=== PATIENT | female | born 1945 | race Caucasian/White ===

== ENCOUNTER 2016-08-31 09:50 | Emergency (ER) | payer OTHER, MEDICAID ==
[~2016-08-31] VITALS: Ht 160 cm; Wt 72.6 kg
[2016-08-31 09:50] VITALS: BP_SYST 146
[~2016-08-31 09:50] MED LIST: CLON0.2T PO; ESCI20TA PO; HYDR-4039 PO; LEVO100T PO; LOSA1TAB15 PO; ROSU10TA PO
[2016-08-31] MEDS ORDERED: cefTRIAXone 1 GM in LIDOCAINE 1%, 20 ML MDV 2.1 ML IM ONE (10:45)
[2016-08-31] MEDS ORDERED: ALBUTEROL SULFATE 0.083% 2.5 MG/3 ML VIAL.NEB INH ONE (10:45)
[2016-08-31 11:48] VITALS: BP_SYST 121
== END 2016-08-31 11:47 | disposition home or self-care (01) ==
LOC: SED 09:50
DX: J20.9 Acute bronchitis, unspecified (principal); E11.9 Type 2 diabetes mellitus without complications; I10 Essential (primary) hypertension; E03.9 Hypothyroidism, unspecified; Z88.8 Allergy status to other drugs, medicaments and biological substances
CPT/HCPCS: 71020; 94640; 96372; 99284; J0696; J2001

== ENCOUNTER 2016-09-28 09:37 | Emergency (ER) | payer OTHER, MEDICAID ==
[~2016-09-28] VITALS: Ht 160 cm; Wt 72.6 kg
[2016-09-28 09:37] VITALS: BP_SYST 113
[2016-09-28] MEDS ORDERED: KETOROLAC TROMETHAMINE 30 MG VIAL IVP ONE (10:30)
[2016-09-28 10:57] LABS: BILIRUBIN,URINE NEGATIVE (NEGATIVE); BLOOD, URINE NEGATIVE (NEGATIVE); CLARITY/URINE CLEAR (CLEAR); COLOR,URINE YELLOW (YELLOW); GLUCOSE,URINE NEGATIVE (NEGATIVE); KETONES,URINE NEGATIVE (NEGATIVE); LEUKOCYTE ESTERASE ,URINE 2+ (NEGATIVE); NITRITE, URINE NEGATIVE (NEGATIVE); PH,URINE 6.5 (5.0-8.0); PROTEIN URINE 2+ (NEGATIVE); UROBILINOGEN,URINE 0.2 (0.2-1.0)
[2016-09-28 11:30] LABS: RBC,URINE 0-3 /HPF (0-3)
[2016-09-28] MEDS ORDERED: ACETAMINOPHEN 500 MG TABLET PO ONE (11:30)
[2016-09-28] MEDS ORDERED: MAGNESIUM CITRATE 300 ML ORAL SOLUTION PO ONE (11:30)
[2016-09-28] MEDS ORDERED: cefTRIAXone 1 GM in D5W 50 ML IV ONE (11:30)
[2016-09-28 11:31] LABS: BACTERIA,URINE FEW /HPF (None Seen); MUCUS,URINE None Seen /LPF (None Seen)
[2016-09-28 12:40] VITALS: BP_SYST 147
== END 2016-09-28 12:40 | disposition home or self-care (01) ==
LOC: SED 09:37
DX: N39.0 Urinary tract infection, site not specified (principal); M54.9 Dorsalgia, unspecified; K59.00 Constipation, unspecified; E11.9 Type 2 diabetes mellitus without complications; I10 Essential (primary) hypertension; E03.9 Hypothyroidism, unspecified; Z88.6 Allergy status to analgesic agent
CPT/HCPCS: 74000; 81000; 87086; 96365; 96375; 99285; J0696; J1885; J7060

== ENCOUNTER 2016-10-24 18:00 | Emergency (ER) | payer OTHER, MEDICAID ==
[~2016-10-24] VITALS: Ht 160 cm; Wt 74.4 kg
[2016-10-24 18:15] VITALS: BP_SYST 149
[2016-10-24] MEDS ORDERED: DIPHENHYDRAMINE INJ 50 MG/ML VIAL IM ONE (19:00)
[2016-10-24] MEDS ORDERED: MORPHINE SULFATE 10 MG/ML VIAL IM ONE (19:00)
[2016-10-24] MEDS ORDERED: DEXAMETHASONE SOD PHOSPHATE 10 MG/ML VIAL IM ONE (19:00)
[2016-10-24 20:02] VITALS: BP_SYST 149
== END 2016-10-24 20:02 | disposition home or self-care (01) ==
LOC: SED 18:00
DX: M54.17 Radiculopathy, lumbosacral region (principal); E11.9 Type 2 diabetes mellitus without complications; I10 Essential (primary) hypertension; Z88.6 Allergy status to analgesic agent; E03.9 Hypothyroidism, unspecified
CPT/HCPCS: 96372; 99284; J1100; J1200; J2270; J7030

== ENCOUNTER 2017-01-30 19:55 | Emergency (ER) | payer OTHER, MEDICAID ==
[~2017-01-30] VITALS: Ht 154.9 cm; Wt 77.1 kg
[~2017-01-30 19:55] MED LIST changes: -CLON0.2T PO; +CYM30 PO; -HYDR-4039 PO; -LEVO100T PO; +LEVO112T5 PO; +LIP10 PO; -LOSA1TAB15 PO; +MELO15TA13 PO; +METF1000 PO; +NEBI20TA2 PO; +PYRI50TA9 PO; -ROSU10TA PO; +TRAM50TA92 PO; +TRIA1CAP53 PO
[2017-01-30 20:10] VITALS: BP_SYST 161
[2017-01-30] MEDS ORDERED: BUPIVACAINE /PF 0.25% 30 ML VIAL INJ ONE (20:45)
[2017-01-30] MEDS ORDERED: DEXAMETHASONE SOD PHOSPHATE 4 MG/ML VIAL IM ONE (20:45)
[2017-01-30 21:44] VITALS: BP_SYST 140
== END 2017-01-30 21:44 | disposition home or self-care (01) ==
LOC: SED 19:55
DX: M54.30 Sciatica, unspecified side (principal); M54.10 Radiculopathy, site unspecified; E11.9 Type 2 diabetes mellitus without complications; I10 Essential (primary) hypertension; E03.9 Hypothyroidism, unspecified; Z88.6 Allergy status to analgesic agent
CPT/HCPCS: 96372; 99283; J1100; J3490

== ENCOUNTER 2017-07-27 23:08 | Emergency (ER) | payer OTHER, MEDICAID ==
[~2017-07-27] VITALS: Ht 157.5 cm; Wt 79.8 kg
[2017-07-27 23:20] VITALS: BP_SYST 111
--- NOTE | 2017-07-28 00:01 | NUR ---
Patient to ER bed 6 to gown for evaluation. Side rails up. Report given to EDILSON Rosado.
--- NOTE | 2017-07-28 00:10 | NUR ---
Pt in Bed 6 with c/o swelling to LE. Dr Dos Santos made aware.
[2017-07-28 00:28] LABS: BILIRUBIN,URINE NEGATIVE (NEGATIVE); BLOOD, URINE NEGATIVE (NEGATIVE); CLARITY/URINE CLEAR (CLEAR); COLOR,URINE YELLOW (YELLOW); GLUCOSE,URINE NEGATIVE (NEGATIVE); KETONES,URINE NEGATIVE (NEGATIVE); LEUKOCYTE ESTERASE ,URINE 2+ (NEGATIVE); NITRITE, URINE NEGATIVE (NEGATIVE); PROTEIN URINE TRACE (NEGATIVE); UROBILINOGEN,URINE 0.2 (0.2-1.0)
[2017-07-28 00:36] LABS: BACTERIA,URINE FEW /HPF (None Seen); RBC,URINE 0-3 /HPF (0-3); WBC,URINE 50-80 /HPF (0-3)
--- NOTE | 2017-07-28 00:40 | NUR ---
ER at bedside examining patient.
[2017-07-28] MEDS ORDERED: LOSA50TA20 PO (01:08)
[2017-07-28 01:15] LABS: BASOPHILS # (AUTO) 0.1 K/uL (0.0-0.2); BASOPHILS % (AUTO) 0.9 % (0.0-2.0); EOSINOPHILS # (AUTO) 0.3 K/uL (0.0-0.4); HEMATOCRIT 39.4 % (36-48); HEMOGLOBIN 13.2 g/dL (12.0-16.0); LYMPHOCYTES # (AUTO) 1.9 K/uL (1.0-5.5); LYMPHOCYTES % (AUTO) 26.6 % (20.5-51.5); MEAN CORPUSCULAR HEMOGLOBIN 30 pg (27-31); MEAN CORPUSCULAR HGB CONC 33 % (32-36); MEAN CORPUSCULAR VOLUME 90 fL (79.0-98.0); MONOCYTES # (AUTO) 0.6 K/uL (0.0-1.0); MONOCYTES % (AUTO) 7.8 % (1.7-9.3); NEUTROPHILS # (AUTO) 4.2 K/uL (1.8-7.7); NEUTROPHILS % (AUTO) 60.7 % (40.0-70.0); PLATELET COUNT (AUTO) 324 K/uL (130-430); RED BLOOD CELL COUNT(AUTO) 4.36 MIL/uL (4.2-6.2); RED CELL DISTRIBUTION WIDTH 12.2 % (9.0-15.0); WHITE BLOOD COUNT (AUTO) 7.1 K/uL (4.8-10.8)
[2017-07-28 01:22] LABS: CALCIUM 9.1 mg/dL (8.4-11.0); CREATININE 0.65 mg/dL (0.55-1.30); POTASSIUM 3.4 mmol/L (3.5-5.1)
[2017-07-28 01:24] LABS: PROTHROMBIN TIME 9.7 SECS (9.5-12.5)
[2017-07-28 01:27] LABS: ALBUMIN 3.8 g/dL (3.4-4.8); TOTAL BILIRUBIN 0.2 mg/dL (0.0-1.0)
[2017-07-28] MEDS ORDERED: CLON0.3T PO (01:30)
[2017-07-28] MEDS ORDERED: PREG100C PO (01:30)
--- NOTE | 2017-07-28 02:00 | NUR ---
Patient resting quietly. No acute distress noted. Vital signs within normal range.
[2017-07-28] MEDS ORDERED: IOHEXOL 350 mgI/mL, 150 ML INFUS..BTL IV ONE ×2 (03:28→17:05)
[2017-07-28] MEDS ORDERED: NITROFURANTOIN MONOHYD/M-CRYST 100 MG CAPSULE PO ONE (03:30)
--- NOTE | 2017-07-28 03:35 | NUR ---
OOB to Bathroom with assistance.
--- NOTE | 2017-07-28 04:08 | NUR ---
Patient transported to radiology via GURNEY, accompanied by ANIME DESIGNER.
--- NOTE | 2017-07-28 04:30 | NUR ---
Returned from radiology, back to [facility].
[2017-07-28] MEDS ORDERED: HYDROcodone/ACETAMIN 5-325 MG TAB (NORCO/ VICODIN) PO ONE (04:45)
--- NOTE | 2017-07-28 05:00 | NUR ---
c/o hip pain , Dr Dos Santos made aware.
--- NOTE | 2017-07-28 05:15 | NUR ---
Medication given as per orders, tolerated well.
[2017-07-28] MEDS ORDERED: hydrALAZINE HCL 20 MG/ML VIAL IVP ONE (05:30)
[2017-07-28 06:03] VITALS: BP_SYST 170
== END 2017-07-28 06:03 | disposition home or self-care (01) ==
LOC: SED 23:08
DX: N39.0 Urinary tract infection, site not specified (principal); R60.9 Edema, unspecified; M79.662 Pain in left lower leg; E11.9 Type 2 diabetes mellitus without complications; I10 Essential (primary) hypertension; E03.9 Hypothyroidism, unspecified; Z90.710 Acquired absence of both cervix and uterus; Z88.6 Allergy status to analgesic agent; Z79.899 Other long term (current) drug therapy; Z96.659 Presence of unspecified artificial knee joint
CPT/HCPCS: 36415; 71045; 71275; 80053; 81000; 83880; 84484; 85025; 85379; 85610; 85730; 87086; 93005; 96374; 99285; J0360; Q9967

== ENCOUNTER 2018-09-10 23:56 | Emergency (ER) | payer OTHER, MEDICAID ==
[~2018-09-10] VITALS: Ht 157.5 cm; Wt 76.2 kg
[~2018-09-10 23:56] MED LIST changes: +CLON0.3T PO; -CYM30 PO; -ESCI20TA PO; -LIP10 PO; +LOSA50TA28 PO; -MELO15TA13 PO; +PREG100C PO; -TRAM50TA92 PO
[2018-09-11 00:20] VITALS: BP_SYST 198
--- NOTE | 2018-09-11 00:20 | NUR ---
0020 - Assumed care of pt. Pt ambulated to ED bed 5 from [facility]. Per pt, pt has had TORO off and on x [address] scan 2 days ago that was normal. currently rates pain 8-10/10.
--- NOTE | 2018-09-11 00:30 | NUR ---
0030 - ER at bedside examining patient.
[2018-09-11] MEDS ORDERED: NACL 0.9% 1,000 ML IV ONE (00:40)
[2018-09-11] MEDS ORDERED: METOCLOPRAMIDE HCL 10 MG/2 ML VIAL IVP ONE (00:45)
[2018-09-11] MEDS ORDERED: DIPHENHYDRAMINE INJ 50 MG/ML VIAL IVP ONE (00:45)
--- NOTE | 2018-09-11 01:00 | NUR ---
# 22 gauge angiocath placed to RT AC. Use of asceptic technique. Opsite placed over site. Blood return noted. Blood for lab drawn from site. Flushed with 10 cc of normal saline. No evidence of infiltration noted. Patient tolerated well.
[2018-09-11] MEDS ORDERED: BENZTROPINE MESYLATE 2 MG/ 2 ML AMP IVP ONE (01:45)
[2018-09-11 03:28] VITALS: BP_SYST 148
--- NOTE | 2018-09-11 03:28 | NUR ---
0328 - Patient given written and verbal discharge instructions and verbalizes understanding. ER MD discussed with patient the results and treatment provided. Patient in stable condition. ID arm band removed. IV catheter removed intact and dressing applied, no active bleeding. Patient educated on pain management and to follow up with PMD. Opportunity for questions provided and answered. Medication side effect fact sheet provided.
== END 2018-09-11 03:28 | disposition home or self-care (01) ==
LOC: SED 23:56
DX: R51 Headache (principal); I10 Essential (primary) hypertension; E11.9 Type 2 diabetes mellitus without complications; E03.9 Hypothyroidism, unspecified; Z90.710 Acquired absence of both cervix and uterus; Z88.6 Allergy status to analgesic agent; Z79.899 Other long term (current) drug therapy
CPT/HCPCS: 96374; 96375; 99283; J1200; J2765; J7030; J0515

== ENCOUNTER 2018-09-13 09:14 | Inpatient (IN) | payer OTHER, MEDICAID ==
[~2018-09-13] VITALS: Ht 157.5 cm; Wt 83.5 kg
[2018-09-13 09:15] VITALS: BP_SYST 187
--- NOTE | 2018-09-13 09:15 | NUR ---
BROUGHT BACK TO BED #4, TRIAGED AND REPORT GIVEN TO MICHEAL
--- NOTE | 2018-09-13 09:24 | NUR ---
Patient presented to ER with c/o headache and dizziness. Patient A&Ox4, afebrile, skin pink, pain 11/26, patient yakut speaking. Patient arrived with daughter, ambulatory. Patient states she has had head ache [id number], but this morning patient had high bp, headache and dizziness prompting ER visit this morning. Patient states she had a head CT saturday at [facility], and an appointment with neurologist in 3 weeks.
--- NOTE | 2018-09-13 09:26 | NUR ---
ER Dr. Keene at bedside examining patient.
[2018-09-13] MEDS ORDERED: DILTIAZEM HCL 25 MG/5 ML VIAL IVP ONE (10:30)
[2018-09-13 10:37] LABS: BASOPHILS % (AUTO) 0.3 % (0.0-2.0); EOSINOPHILS # (AUTO) 0.1 K/uL (0.0-0.4); EOSINOPHILS % (AUTO) 2.1 % (0.0-4.0); HEMOGLOBIN 11.9 g/dL (12.0-16.0); LYMPHOCYTES # (AUTO) 1.2 K/uL (1.0-5.5); LYMPHOCYTES % (AUTO) 19.2 % (20.5-51.5); MEAN CORPUSCULAR HEMOGLOBIN 30 pg (27-31); MEAN CORPUSCULAR HGB CONC 33 % (32-36); MEAN CORPUSCULAR VOLUME 89 fL (79.0-98.0); MONOCYTES # (AUTO) 0.4 K/uL (0.0-1.0); NEUTROPHILS # (AUTO) 4.3 K/uL (1.8-7.7); NEUTROPHILS % (AUTO) 71.4 % (40.0-70.0); PLATELET COUNT (AUTO) 279 K/uL (130-430); RED BLOOD CELL COUNT(AUTO) 4.03 MIL/uL (4.2-6.2); RED CELL DISTRIBUTION WIDTH 13.6 % (9.0-15.0)
[2018-09-13 10:59] LABS: INR 0.9 (0.8-1.2); PROTHROMBIN TIME 9.2 SECS (9.5-12.5)
[2018-09-13 11:00] LABS: ANION GAP 7 (5-15); CREATININE 0.69 mg/dL (0.55-1.30); GLUCOSE 116 mg/dL (70-99); POTASSIUM 4.1 mmol/L (3.5-5.1); SODIUM SERUM 121 mmol/L (136-145); UREA NITROGEN, BLOOD 16 mg/dL (8-21)
[2018-09-13 11:25] LABS: ALANINE AMINOTRANSFERASE 26 U/L (12-78); ALBUMIN 3.5 g/dL (3.4-4.8); ASPARTATE AMINOTRANSFERASE 18 U/L (10-37); FREE T4 (FREE THYROXINE) 0.7 ng/dL (0.6-1.6); TOTAL BILIRUBIN 0.5 mg/dL (0.0-1.0)
[2018-09-13 11:30] LABS: ALCOHOL, BLOOD < 3 mg/dL (<10); CHLORIDE 85 mmol/L (98-107)
[2018-09-13 11:43] LABS: BILIRUBIN,URINE NEGATIVE (NEGATIVE); BLOOD, URINE NEGATIVE (NEGATIVE); CLARITY/URINE CLEAR (CLEAR); COLOR,URINE YELLOW (YELLOW); GLUCOSE,URINE NEGATIVE (NEGATIVE); KETONES,URINE NEGATIVE (NEGATIVE); LEUKOCYTE ESTERASE ,URINE 1+ (NEGATIVE); NITRITE, URINE NEGATIVE (NEGATIVE); PROTEIN URINE NEGATIVE (NEGATIVE); UROBILINOGEN,URINE 0.2 (0.2-1.0)
[2018-09-13] MEDS ORDERED: cloNIDine HCL 0.1 MG TABLET PO ONE (11:45)
[2018-09-13] MEDS ORDERED: NS 500 ML IV ONE (11:45)
[2018-09-13] MEDS ORDERED: MORPHINE 4 MG/ML INJ. SYRINGE IVP ONE (11:45)
[2018-09-13] MEDS ORDERED: DIPHENHYDRAMINE INJ 50 MG/ML VIAL IVP ONE (11:45)
--- NOTE | 2018-09-13 11:45 | NUR ---
TO orders from Dr. Asencio
[2018-09-13 12:00] LABS: RBC,URINE 0-3 /HPF (0-3); WBC,URINE 0-3 /HPF (0-3)
[2018-09-13 12:01] LABS: BACTERIA,URINE FEW /HPF (None Seen); MUCUS,URINE None Seen /LPF (None Seen)
[2018-09-13 12:01] LABS: BARBITURATE, URINE NEGATIVE (NEG <=200); BENZODIAZEPINE, URINE NEGATIVE (NEG <=150); CANNABINOID, URINE NEGATIVE (NEG <=50); COCAINE, URINE NEGATIVE (NEG <=150); METHAMPHETAMINES SCREEN,URINE NEGATIVE (NEG <=500); OPIATE, URINE NEGATIVE (NEG <=100); PHENCYCLIDINE SCREEN,URINE NEGATIVE (NEG <=25); UR TRICYCLIC ANTIDEPRESSANTS NEGATIVE (NEG <=300); URINE AMPHETAMINE NEGATIVE (NEG <=500); URINE METHADONE NEGATIVE (NEG <=200); URINE OXYCODONE SCREEN NEGATIVE (NEG <=100); URINE PROPOXYPHENE SCREEN NEGATIVE (NEG <=300)
[2018-09-13] MEDS ORDERED: OLME40TA12 PO (12:12)
--- NOTE | 2018-09-13 12:12 | NUR ---
Medication reconciliation completed with information provided by [employer] BROUGHT IN BY PATIENT AND PTS FAMILY. Any prior medication reconciliation on file was reviewed and corrected.
--- NOTE | 2018-09-13 12:50 | NUR ---
ADMISSION NOTE Received patient from ER via gurney. Patient admitted with diagnosis of HYPERTENSION. Patient is awake, alert, oriented X 3. Patient oriented to hospital room, call light, toileting, pain management and safety-teach back done. Patient informed that SAHIL will be HER nurse and that their room number is 101A. Personal belongings checked and Belongings List documented. Call light within reach.
[2018-09-13 12:58] VITALS: BP_SYST 185
[2018-09-13] MEDS ORDERED: D5W 1,000 ML IV PRN (12:59)
[2018-09-13] MEDS ORDERED: INSULIN REGULAR, HUMAN 100 UNITS/ML, 10 ML VIAL (novoLIN R) SUBCUT PRN (13:00)
[2018-09-13] MEDS ORDERED: LORazepam 2 MG/ML VIAL IVP PRN (13:00)
[2018-09-13] MEDS ORDERED: HYDROcodone/ACETAMIN 10-325 MG TAB PO PRN (13:00)
[2018-09-13] MEDS ORDERED: GLUCOSE 15 GM GEL (in 37.5 GM TUBE) PO PRN (13:00)
[2018-09-13] MEDS ORDERED: DEXTROSE 50% JECT 50 ML DISP.SYRIN IVP PRN (13:00)
[2018-09-13] MEDS ORDERED: HYDROcodone/ACETAMIN 5-325 MG TAB (NORCO/ VICODIN) PO PRN (13:00)
[2018-09-13] MEDS ORDERED: MORPHINE 4 MG/ML INJ. SYRINGE IVP PRN (13:00)
[2018-09-13] MEDS ORDERED: ONDANSETRON HCL 4 MG/2 ML VIAL IVP PRN (13:00)
--- NOTE | 2018-09-13 13:00 | NUR ---
Patient will be admitted to care of [facility]. Admitted to Tele unit. Will go to room . Belongings list completed. Summary report printed. Report will be given at bedside to Kayla WAGGONER.
--- NOTE | 2018-09-13 13:37 | NUR ---
CONSULTATION PAGED/CALLED Reason for Consultation: [] UNCONTROLEED HTN Person Who was Notified: [] LILIA Consulting Physician: [] DR Laith ESPINAL Landcare Facilitator Specialty: [] [employer] MATH TEACHER Ordering Physician: [] DR Marquis ESPINAL
--- NOTE | 2018-09-13 13:39 | NUR ---
CONSULTATION PAGED/CALLED Reason for Consultation: [] HEADACHE Person Who was Notified: [] SIMI Consulting Physician: [] DR ELEANOR CARR/DR GHANSHYAM RODRIGES REPORTING DEVELOPER Return Agent Specialty: [] NEUROLOGIST Ordering Physician: [] DR Marquis ESPINAL
[2018-09-13] MEDS: NACL 0.9% 1,000 ML IV SCH ×2 (13:51→23:18)
[2018-09-13 13:52] VITALS: BP_SYST 121
--- NOTE | 2018-09-13 14:00 | NUR ---
CARDIO/NEURO Patient occipital headache is better using eye glass, no dizziness no blurring of vision , blood pressure is controlled able to get out of to bed side commode with minimum assistance, discussed safety/fall precaution , bedside commode provided, needs attended.
[2018-09-13] MEDS ORDERED: AMITRIPTYLINE HCL 25 MG TABLET (ELAVIL) PO ONE (15:30)
[2018-09-13 17:10] VITALS: BP_SYST 121
[2018-09-13] MEDS: metFORMIN HCL 500 MG TABLET PO SCH (17:18)
--- NOTE | 2018-09-13 18:45 | NUR ---
Patient resting denies any headache , fall safety precaution initiated.
[2018-09-13 20:00] VITALS: BP_SYST 140
[2018-09-13] MEDS ORDERED: cloNIDine HCL 0.1 MG TABLET PO SCH (21:00)
[2018-09-13] MEDS: AMITRIPTYLINE HCL 25 MG TABLET (ELAVIL) PO SCH (21:31)
[2018-09-13] MEDS: ATORVASTATIN 20 MG TABLET PO SCH (21:31)
[2018-09-13] MEDS: cloNIDine HCL 0.1 MG TABLET PO SCH (21:33)
[2018-09-13] MEDS: PREGABALIN 25 MG CAPSULE (LYRICA) PO SCH (21:34)
[2018-09-13 22:40] VITALS: BP_SYST 148
--- NOTE | 2018-09-13 22:42 | NUR ---
NOTES - REASSESS HEADACHE / B/P Reassessed headache pain level and patient reports tablet, Vicodin, did not help and presently reports pain is 8/10. Will administer medication for severe pain as ordered. Blood pressure decreased and is presently 148/71, HR 54. Will monitor.
[2018-09-14 00:12] VITALS: BP_SYST 128
--- NOTE | 2018-09-14 00:35 | NUR ---
Notes Patient is in no sign of distress and reports headache is gone it is 0/10. VSS, with B/P 128/59, HR 53. Safety precautions in place. Will monitor.
--- NOTE | 2018-09-14 02:24 | NUR ---
NOTES Patient resting w/eyes closed. Symmetrical rise and fall of chest, none labored breathing.
--- NOTE | 2018-09-14 04:14 | NUR ---
NOTES Patient's vital signs are stable; BP 142/74. She used the bedside commode and had a steady gait; she did not experience dizziness or lightheadedness. She denies a headache or pain at this time.
[2018-09-14 06:10] VITALS: BP_SYST 142
[2018-09-14 06:14] LABS: BASOPHILS % (AUTO) 0.3 % (0.0-2.0); EOSINOPHILS # (AUTO) 0.2 K/uL (0.0-0.4); HEMATOCRIT 33.2 % (36-48); HEMOGLOBIN 10.9 g/dL (12.0-16.0); LYMPHOCYTES # (AUTO) 2.1 K/uL (1.0-5.5); LYMPHOCYTES % (AUTO) 33.8 % (20.5-51.5); MEAN CORPUSCULAR HEMOGLOBIN 30 pg (27-31); MEAN CORPUSCULAR HGB CONC 33 % (32-36); MEAN CORPUSCULAR VOLUME 90 fL (79.0-98.0); MONOCYTES # (AUTO) 0.5 K/uL (0.0-1.0); MONOCYTES % (AUTO) 7.8 % (1.7-9.3); NEUTROPHILS # (AUTO) 3.3 K/uL (1.8-7.7); NEUTROPHILS % (AUTO) 54.1 % (40.0-70.0); PLATELET COUNT (AUTO) 257 K/uL (130-430); RED BLOOD CELL COUNT(AUTO) 3.68 MIL/uL (4.2-6.2); RED CELL DISTRIBUTION WIDTH 13.3 % (9.0-15.0); WHITE BLOOD COUNT (AUTO) 6.2 K/uL (4.8-10.8)
[2018-09-14 06:24] LABS: ANION GAP 5 (5-15); CALCIUM 8.6 mg/dL (8.4-11.0); CHLORIDE 92 mmol/L (98-107); CREATININE 0.68 mg/dL (0.55-1.30); GLUCOSE 97 mg/dL (70-99); PHOSPHORUS 3.9 mg/dL (2.7-4.5); POTASSIUM 3.6 mmol/L (3.5-5.1); SODIUM SERUM 124 mmol/L (136-145); UREA NITROGEN, BLOOD 15 mg/dL (8-21)
[2018-09-14] MEDS: LEVOTHYROXINE SODIUM 0.112 MG TABLET PO SCH (06:55)
--- NOTE | 2018-09-14 07:00 | NUR ---
CLOSING NOTE Patient requested pain medication for a headache, which she rates 7/10 and she was given norco 10-325 as ordered for pain. Fingerstick BS was done with a result of 97 mg/DL. Needs met throughout shift, will endorse care to day shift nurse.
[2018-09-14 07:51] VITALS: BP_SYST 150
[2018-09-14] MEDS: PREGABALIN 25 MG CAPSULE (LYRICA) PO SCH ×2 (08:25→20:16)
[2018-09-14] MEDS: metFORMIN HCL 500 MG TABLET PO SCH ×2 (08:25→17:10)
[2018-09-14] MEDS: cloNIDine HCL 0.1 MG TABLET PO SCH ×2 (08:26→20:16)
[2018-09-14] MEDS: LOSARTAN POTASSIUM 50 MG TABLET (COZAAR) PO SCH (08:26)
[2018-09-14] MEDS: TRIAMTERENE/HYDROCHLOROTHIAZID 1 CAP CAPSULE (DYAZIDE37.5/25) PO SCH (08:27)
[2018-09-14] MEDS ORDERED: amLODIPine BESYLATE 5 MG TABLET PO SCH (09:00)
[2018-09-14 10:41] VITALS: BP_SYST 150
[2018-09-14] MEDS: NACL 0.9% 1,000 ML IV SCH (10:58)
--- NOTE | 2018-09-14 13:02 | NUR ---
NEURO Patient alert/oriented denies any dizziness no blurring of vision with ,mild occipital headache tolerable as verbalized ,encouraged to use eyeglass, refused for pain medication, safety /fall precaution initiated will monitor.
--- NOTE | 2018-09-14 14:04 | NUR ---
PATIENT RESTING: Patient resting quietly. No acute distress noted. Vital signs within normal range.
--- NOTE | 2018-09-14 15:45 | NUR ---
RECEIVED PATIENT Report received from EDILSON Baker. Patient made aware, will continue with the plan of care.
[2018-09-14 16:30] VITALS: BP_SYST 140
[2018-09-14] MEDS: ACETAMINOPHEN 325 MG TABLET PO PRN (17:11)
--- NOTE | 2018-09-14 17:11 | NUR ---
ROUNDS/PAIN Patient is awake, no respiratory distress noted, reports 3/10 headache, PRN Tylenol PO given as ordered. IVF infusing as ordered. Safety precautions observed, call light within reach, will continue to monitor. Daughter at the bedside.
--- NOTE | 2018-09-14 18:21 | NUR ---
CLOSING NOTE Patient is awake, in stable condition, breathing even and unlabored. Denies any pain/discomfort at this time. IVF infusing as ordered. Blaze Kelly seen and examined the patient at the bedside. Safety precautions observed, bed low and locked, side rails up x2, call light within reach. All needs met and anticipated, will endorse plan of care.
[2018-09-14 20:00] VITALS: BP_SYST 171
--- NOTE | 2018-09-14 20:11 | NUR ---
OPENING NOTE Received patient awake, AOx4, she is in no sign of distress, non labored breathing on room air with saturation at 97%. Call light is w/in reach. She refused bed alarm stating she gets up for use of the bedside commode and has not been calling for help. She denies dizziness. Updated board and reviewed plan of care.
[2018-09-14] MEDS: AMITRIPTYLINE HCL 25 MG TABLET (ELAVIL) PO SCH (20:16)
[2018-09-14] MEDS: ATORVASTATIN 20 MG TABLET PO SCH (20:16)
--- NOTE | 2018-09-14 20:21 | NUR ---
ELEVATED BLOOD PRESSURE Blood pressure was 171/72, HR 68. Administered catapress for blood pressure, which was scheduled/due. Will monitor.
[2018-09-15] VITALS (7 sets, daily range): BP systolic 148–178
[2018-09-15] MEDS: NACL 0.9% 1,000 ML IV SCH ×4 (00:43→23:53)
--- NOTE | 2018-09-15 00:48 | NUR ---
NOTES Patient's IV alarm was ringing, IVF bag is emtpy and hung new bag of IVF. Patient denies headache. Will monitor.
[2018-09-15] MEDS: ACETAMINOPHEN 325 MG TABLET PO PRN ×2 (02:37→08:29)
--- NOTE | 2018-09-15 02:41 | NUR ---
NOTES C/O headache Patient called to report a headache and requested Tylenol, she said she does not want Tyler tablets as she does not like the effect they have on her. Presently B/P is 156/73 and prn blood pressure medication is not indicated. Tylenol was given and will reassess.
--- NOTE | 2018-09-15 03:45 | NUR ---
NOTES Patient reports little relief from Tylenol and feels it is the blood pressure that is causing headache. B/P is 159/79 and prn medication is not indicated.
--- NOTE | 2018-09-15 04:05 | NUR ---
Elevated b/P Presently B/P 164/75, HR 69 and prn medication, catapress, was given. Will monitor.
[2018-09-15] MEDS: cloNIDine HCL 0.1 MG TABLET PO PRN ×2 (04:06→15:36)
[2018-09-15] MEDS: LEVOTHYROXINE SODIUM 0.112 MG TABLET PO SCH (06:05)
--- NOTE | 2018-09-15 06:13 | NUR ---
Notes Patient is feeling better, headache is gone and blood pressure has decreased to 1552/79, HR 67. Fingerstick BS is 98 mg/dL, no coverage due.
[2018-09-15 06:59] LABS: ANION GAP 9 (5-15); BASOPHILS % (AUTO) 0.2 % (0.0-2.0); CALCIUM 8.5 mg/dL (8.4-11.0); CHLORIDE 97 mmol/L (98-107); EOSINOPHILS # (AUTO) 0.3 K/uL (0.0-0.4); EOSINOPHILS % (AUTO) 4.7 % (0.0-4.0); GLUCOSE 100 mg/dL (70-99); HEMATOCRIT 33.2 % (36-48); HEMOGLOBIN 11.2 g/dL (12.0-16.0); LYMPHOCYTES # (AUTO) 1.7 K/uL (1.0-5.5); LYMPHOCYTES % (AUTO) 30.9 % (20.5-51.5); MEAN CORPUSCULAR HEMOGLOBIN 30 pg (27-31); MEAN CORPUSCULAR HGB CONC 34 % (32-36); MEAN CORPUSCULAR VOLUME 90 fL (79.0-98.0); MONOCYTES # (AUTO) 0.5 K/uL (0.0-1.0); MONOCYTES % (AUTO) 9.3 % (1.7-9.3); NEUTROPHILS % (AUTO) 54.9 % (40.0-70.0); PLATELET COUNT (AUTO) 256 K/uL (130-430); POTASSIUM 3.5 mmol/L (3.5-5.1); RED BLOOD CELL COUNT(AUTO) 3.68 MIL/uL (4.2-6.2); RED CELL DISTRIBUTION WIDTH 13.7 % (9.0-15.0); SODIUM SERUM 133 mmol/L (136-145); UREA NITROGEN, BLOOD 14 mg/dL (8-21); WHITE BLOOD COUNT (AUTO) 5.4 K/uL (4.8-10.8)
[2018-09-15 07:06] LABS: ALANINE AMINOTRANSFERASE 23 U/L (12-78); ASPARTATE AMINOTRANSFERASE 20 U/L (10-37); TOTAL BILIRUBIN 0.4 mg/dL (0.0-1.0)
--- NOTE | 2018-09-15 07:15 | NUR ---
CLOSING NOTE Gave report to EDILSON Monsalve. Patient stable in no sign of distress.
--- NOTE | 2018-09-15 07:40 | NUR ---
AM rounds Patient resting in bed at this time, NO SOB, lung sounds clear. Complained of headache, medication given as ordered, ice pack provided. No dizziness, no blurry vision. Edema noted on bilateral upper and lower extremities. Fall precautions in place, bed in lowest position, 2 side rails up, educated on the call light system, patient verbalized understanding, call light within reach.
[2018-09-15] MEDS: PREGABALIN 25 MG CAPSULE (LYRICA) PO SCH ×2 (08:24→20:29)
[2018-09-15] MEDS: metFORMIN HCL 500 MG TABLET PO SCH ×2 (08:24→17:32)
[2018-09-15] MEDS: TRIAMTERENE/HYDROCHLOROTHIAZID 1 CAP CAPSULE (DYAZIDE37.5/25) PO SCH (08:25)
[2018-09-15] MEDS: LOSARTAN POTASSIUM 50 MG TABLET (COZAAR) PO SCH (08:26)
[2018-09-15] MEDS: amLODIPine BESYLATE 5 MG TABLET PO SCH (08:29)
[2018-09-15] MEDS: cloNIDine HCL 0.1 MG TABLET PO SCH ×2 (08:30→20:30)
--- NOTE | 2018-09-15 11:30 | NUR ---
Rounds Patient resting in bed, No SOB. States headache is tolerable, no dizziness, no blurred vision. IV site patent and fluids infusing as ordered. Fall precautions in place, bed alarm on, bed in lowest position, call light within reach
--- NOTE | 2018-09-15 15:16 | NUR ---
Rounds Patient up in chair having snacks, Son at bedside. No SOB, no dizziness, no blurry vision. No complaints of pain at this time. Patient complained of constipation, prune juice provided.
--- NOTE | 2018-09-15 18:31 | NUR ---
Closing note Patient resting in bed at this time.No SOB, no dizziness, no blurry vision. No complaints of pain at this time. Patient had one bowel movement, no complaints of abdominal pain. IV fluids infusing as ordered, no adverse side effects noted. On fall precautions, reinforced, bed kept in lowest position, call light within reach, 2 side rails up, bed alarm on. All needs met at this time.
--- NOTE | 2018-09-15 19:37 | NUR ---
Opening notes Received report. Patient is resting comfortably in bed. No signs of distress noted. Breathing is even and unlabored. IV patent and intact, infusing fluids. No needs at this time. Call light with the patient. Safety precautions in place.
[2018-09-15] MEDS: AMITRIPTYLINE HCL 25 MG TABLET (ELAVIL) PO SCH (20:29)
[2018-09-15] MEDS: ATORVASTATIN 20 MG TABLET PO SCH (20:30)
--- NOTE | 2018-09-15 20:30 | NUR ---
Medications Scheduled medications given. Educated the action and side effects of medications. Patient verbalized understanding and tolerated well. No signs of allergic reaction noted. No other needs at this time. Patient watching TV. Call light with the patient. Safety precautions in place.
--- NOTE | 2018-09-15 22:30 | NUR ---
Sleeping Patient sleeping. no sign of distress noted. Breathing even and unlabored. Call light with the patient. Safety precautions in place.
[2018-09-16 00:25] VITALS: BP_SYST 129
--- NOTE | 2018-09-16 00:30 | NUR ---
IVF New bag of IVF hung. No signs of distress noted. Breathing is even and unlabored. Emptied patient's bedside commode. No other needs at this time. Call light with the patient. Safety precautions in place.
--- NOTE | 2018-09-16 02:31 | NUR ---
Sleeping Patient asleep and snoring. No signs of distress noted. Call light with the patient. Safety precautions in place.
--- NOTE | 2018-09-16 04:16 | NUR ---
Patient continues to sleep. No signs of distress. Call light with the patient. Safety precautions in place.
[2018-09-16] MEDS: LEVOTHYROXINE SODIUM 0.112 MG TABLET PO SCH (06:06)
[2018-09-16] MEDS: ACETAMINOPHEN 325 MG TABLET PO PRN ×2 (06:15→10:28)
--- NOTE | 2018-09-16 06:35 | NUR ---
Closing notes Patient complain of headache. PRN pain medication given. Educated the action and side effects of medication. Patient verbalized understanding. All needs met throughout the shift. Call light with the patient. Safety precautions in place. Will endorse care to day shift RN.
[2018-09-16 06:51] LABS: BASOPHILS % (AUTO) 0.2 % (0.0-2.0); EOSINOPHILS # (AUTO) 0.3 K/uL (0.0-0.4); EOSINOPHILS % (AUTO) 5.2 % (0.0-4.0); HEMATOCRIT 32.9 % (36-48); HEMOGLOBIN 10.9 g/dL (12.0-16.0); LYMPHOCYTES # (AUTO) 1.7 K/uL (1.0-5.5); LYMPHOCYTES % (AUTO) 30.3 % (20.5-51.5); MEAN CORPUSCULAR HEMOGLOBIN 30 pg (27-31); MEAN CORPUSCULAR HGB CONC 33 % (32-36); MEAN CORPUSCULAR VOLUME 90 fL (79.0-98.0); MONOCYTES # (AUTO) 0.4 K/uL (0.0-1.0); MONOCYTES % (AUTO) 7.2 % (1.7-9.3); NEUTROPHILS # (AUTO) 3.2 K/uL (1.8-7.7); NEUTROPHILS % (AUTO) 57.1 % (40.0-70.0); PLATELET COUNT (AUTO) 257 K/uL (130-430); RED BLOOD CELL COUNT(AUTO) 3.66 MIL/uL (4.2-6.2); RED CELL DISTRIBUTION WIDTH 13.4 % (9.0-15.0); WHITE BLOOD COUNT (AUTO) 5.5 K/uL (4.8-10.8)
[2018-09-16 07:08] LABS: ANION GAP 6 (5-15); CALCIUM 8.6 mg/dL (8.4-11.0); CHLORIDE 95 mmol/L (98-107); CREATININE 0.56 mg/dL (0.55-1.30); GLUCOSE 102 mg/dL (70-99); POTASSIUM 3.2 mmol/L (3.5-5.1); SODIUM SERUM 128 mmol/L (136-145); UREA NITROGEN, BLOOD 10 mg/dL (8-21)
--- NOTE | 2018-09-16 07:25 | NUR ---
Opening Note patient resting in bed, eyes closed, breathing unlabored and symmetrical, no signs of distress, safety precautions in place, will continue to monitor
[2018-09-16] MEDS: LOSARTAN POTASSIUM 50 MG TABLET (COZAAR) PO SCH (08:34)
[2018-09-16] MEDS: TRIAMTERENE/HYDROCHLOROTHIAZID 1 CAP CAPSULE (DYAZIDE37.5/25) PO SCH (08:34)
[2018-09-16] MEDS: PREGABALIN 25 MG CAPSULE (LYRICA) PO SCH (08:34)
[2018-09-16] MEDS: cloNIDine HCL 0.1 MG TABLET PO SCH (08:35)
[2018-09-16] MEDS: metFORMIN HCL 500 MG TABLET PO SCH (08:35)
[2018-09-16] MEDS: amLODIPine BESYLATE 5 MG TABLET PO SCH (08:35)
--- NOTE | 2018-09-16 08:40 | NUR ---
Medication educated patient regarding meds, verbalized understanding, tolerated well by mouth, breathing unlabored and symmetrical, IV site patent, educated patient on use of call light for assistance, verbalized understanding, call light and bedside table left within reach, will continue to monitor
[2018-09-16 08:41] VITALS: BP_SYST 152
--- NOTE | 2018-09-16 10:31 | NUR ---
Tylenol given at this time for headache, educated patient regarding med, verbalized understanding, tolerated well by mouth, educated patient on use of call light for assistance, verbalized understanding, call light and bedside table left within reach, will continue to monitor
[2018-09-16] MEDS: NACL 0.9% 1,000 ML IV SCH (11:17)
[2018-09-16 11:31] VITALS: BP_SYST 158
--- NOTE | 2018-09-16 12:13 | NUR ---
Attempting to Page Dr. Asencio patient's son Baljeet asking if patient is to be discharged today so he can arrange transportation for patient, awaiting MD to call back
--- NOTE | 2018-09-16 12:20 | NUR ---
Spoke with Dr. Asencio asked if patient can be discharged home today, MD stated he is on his way to hospital. Called liza Delong and informed him MD will make rounds soon, verbalized understanding and stated will be by to see patient
--- NOTE | 2018-09-16 12:48 | NUR ---
Dr. Marquis Asencio Rounds stated patient can be discharged if cleared by Dr. Laith Asencio, will await MD to call back
[2018-09-16] MEDS ORDERED: LIP20 PO (12:51)
[2018-09-16] MEDS ORDERED: NOR10 PO (12:51)
[2018-09-16] MEDS ORDERED: ELA25 PO (12:51)
[2018-09-16] MEDS ORDERED: LOSA50TA3 PO (12:51)
[2018-09-16 13:06] VITALS: BP_SYST 152
--- NOTE | 2018-09-16 13:45 | NUR ---
D/C Patient Patient given medication reconciliation form and D/C instructions. Exit Care provided. Patient verbalized understanding. MD discussed with patient the results and treatment provided. Ambulatory with steady gait for discharge to home. Patient in stable condition, ID band removed. IV catheter removed, intact and dressing applied, no active bleeding. Rx given. Patient educated on pain management. All belongings sent with patient and son
--- NOTE | 2018-09-18 15:11 | NUR ---
Discharge Follow Up Phone Call BORING MACHINE SET UP OPERATOR JIG phoned patient, . Patient speaks limited Russian, but was able to communicate on a basic level. Patient stated she was feeling okay. She filled her prescriptions and is taking her medication as directed. She has a follow up appointment scheduled with her PCP, Dr Lemus, on 09/19/18.
== END 2018-09-16 13:45 | disposition home or self-care (01) | DRG 641 ==
LOC: SED 09:14 → STU 12:21 → SMU 09-15 15:34
PROVIDERS: ADMIT Preventive Medicine Preventive Medicine/Occupational Environmental Medicine; ATTEND Preventive Medicine Preventive Medicine/Occupational Environmental Medicine
DX: E87.1 Hypo-osmolality and hyponatremia (principal); N39.0 Urinary tract infection, site not specified; I16.0 Hypertensive urgency; E78.5 Hyperlipidemia, unspecified; E11.65 Type 2 diabetes mellitus with hyperglycemia; D64.9 Anemia, unspecified; E03.9 Hypothyroidism, unspecified; E66.9 Obesity, unspecified; E87.6 Hypokalemia; I10 Essential (primary) hypertension; Z90.710 Acquired absence of both cervix and uterus; Z68.33 Body mass index [BMI] 33.0-33.9, adult; Z88.8 Allergy status to other drugs, medicaments and biological substances; Z79.899 Other long term (current) drug therapy
CPT/HCPCS: 36415; 70450-TC; 71045; 74018; 80048; 80053; 80307; 81000-TC; 82140-TC; 82962; 83605; 83735-TC; 83880; 84100-TC; 84439; 84484; 85025; 85610-TC; 87040-TC; 87086; 93005; 93306; 96374; 96375; 99285; G0378; G0482; J1200; J1815; J2270; J3490; J7030

== ENCOUNTER 2018-09-20 04:31 | Emergency (ER) | payer OTHER, MEDICAID ==
[~2018-09-20] VITALS: Ht 157.5 cm; Wt 81.6 kg
[~2018-09-20 04:31] MED LIST changes: -CLON0.3T PO; +ELA25 PO; +LIP20 PO; -LOSA50TA28 PO; +LOSA50TA3 PO; -NEBI20TA2 PO; +NOR10 PO; -PYRI50TA9 PO
--- NOTE | 2018-09-20 04:45 | NUR ---
Patient to ER bed 6 to gown for evaluation. Side rails up.
--- NOTE | 2018-09-20 04:48 | NUR ---
Pt C/O hypertension since this morning. Family reports systolic ranging from 160-170. Hx of HTN and was recently admitted for uncontrolled blood pressure. Pt denies any headache, blurred vison, ringing in the ears, or any other complaints at this time. Will continue to monitor.
[2018-09-20 04:50] VITALS: BP_SYST 180
--- NOTE | 2018-09-20 05:05 | NUR ---
KALI Polk at bedside examining patient.
[2018-09-20] MEDS ORDERED: ACETAMINOPHEN 500 MG TABLET PO ONE (05:15)
[2018-09-20] MEDS ORDERED: ONDANSETRON 4 MG ODT TAB PO ONE (05:15)
[2018-09-20] MEDS ORDERED: hydrALAZINE HCL 25 MG TABLET PO ONE (05:15)
[2018-09-20] MEDS ORDERED: hydrALAZINE HCL 25 MG TABLET ONE (05:31)
[2018-09-20 06:29] VITALS: BP_SYST 154
--- NOTE | 2018-09-20 06:29 | NUR ---
Patient given written and verbal discharge instructions and verbalizes understanding. ER MD discussed with patient the results and treatment provided. Patient in stable condition. ID arm band removed. Patient educated on pain management and to follow up with PMD. Pain Scale 0/10. Opportunity for questions provided and answered. Medication side effect fact sheet provided.
[2018-09-20] MEDS ORDERED: NEBI20TA2 PO (12:05)
[2018-09-20] MEDS ORDERED: CAT.1 PO (12:05)
[2018-09-20] MEDS ORDERED: OLME40TA12 PO (12:05)
== END 2018-09-20 06:29 | disposition home or self-care (01) ==
LOC: SED 04:31
DX: I10 Essential (primary) hypertension (principal); R51 Headache; R11.0 Nausea; E11.9 Type 2 diabetes mellitus without complications; E03.9 Hypothyroidism, unspecified; Z88.6 Allergy status to analgesic agent; Z79.899 Other long term (current) drug therapy
CPT/HCPCS: 99284; Q0162

== ENCOUNTER 2018-09-20 07:40 | Inpatient (IN) | payer OTHER, MEDICAID ==
[~2018-09-20] VITALS: Ht 157.5 cm; Wt 81.6 kg
[2018-09-20 07:40] VITALS: BP_SYST 158
[2018-09-20] MEDS ORDERED: ACETAMINOPHEN 325 MG TABLET PO ONE (08:30)
[2018-09-20] MEDS ORDERED: ACETAMINOPHEN 325 MG TABLET ONE (08:43)
[2018-09-20] MEDS ORDERED: ASPIRIN 81 MG TAB.CHEW PO ONE (09:30)
[2018-09-20] MEDS ORDERED: MORPHINE 4 MG/ML INJ. SYRINGE IVP ONE (09:30)
[2018-09-20 10:09] LABS: BASOPHILS % (AUTO) 0.3 % (0.0-2.0); EOSINOPHILS # (AUTO) 0.2 K/uL (0.0-0.4); EOSINOPHILS % (AUTO) 2.2 % (0.0-4.0); HEMATOCRIT 36.9 % (36-48); HEMOGLOBIN 12.5 g/dL (12.0-16.0); LYMPHOCYTES # (AUTO) 1.4 K/uL (1.0-5.5); MEAN CORPUSCULAR HEMOGLOBIN 30 pg (27-31); MEAN CORPUSCULAR HGB CONC 34 % (32-36); MEAN CORPUSCULAR VOLUME 88 fL (79.0-98.0); MONOCYTES # (AUTO) 0.6 K/uL (0.0-1.0); MONOCYTES % (AUTO) 7.4 % (1.7-9.3); NEUTROPHILS # (AUTO) 6.3 K/uL (1.8-7.7); NEUTROPHILS % (AUTO) 74.1 % (40.0-70.0); PLATELET COUNT (AUTO) 280 K/uL (130-430); RED BLOOD CELL COUNT(AUTO) 4.18 MIL/uL (4.2-6.2); RED CELL DISTRIBUTION WIDTH 13.3 % (9.0-15.0); WHITE BLOOD COUNT (AUTO) 8.5 K/uL (4.8-10.8)
[2018-09-20] MEDS: PROMETHAZINE INJ.Non-Formulary 25 MG/ML AMP IVP ONE (10:13)
[2018-09-20] MEDS: NACL 0.9% 1,000 ML IV ONE (10:13)
[2018-09-20 10:20] LABS: BILIRUBIN,URINE NEGATIVE (NEGATIVE); BLOOD, URINE NEGATIVE (NEGATIVE); CLARITY/URINE CLEAR (CLEAR); COLOR,URINE YELLOW (YELLOW); GLUCOSE,URINE NEGATIVE (NEGATIVE); KETONES,URINE NEGATIVE (NEGATIVE); LEUKOCYTE ESTERASE ,URINE TRACE (NEGATIVE); NITRITE, URINE NEGATIVE (NEGATIVE); PH,URINE 7.5 (5.0-8.0); PROTEIN URINE TRACE (NEGATIVE); UROBILINOGEN,URINE 0.2 (0.2-1.0)
[2018-09-20 10:23] LABS: CALCIUM 9.2 mg/dL (8.4-11.0); CREATININE 0.83 mg/dL (0.55-1.30); GLUCOSE 109 mg/dL (70-99); UREA NITROGEN, BLOOD 16 mg/dL (8-21)
[2018-09-20 10:27] LABS: ALANINE AMINOTRANSFERASE 37 U/L (12-78); ALBUMIN 3.7 g/dL (3.4-4.8); ASPARTATE AMINOTRANSFERASE 26 U/L (10-37); LIPASE 449 U/L (73-393); PROTHROMBIN TIME 9.8 SECS (9.5-12.5); TOTAL BILIRUBIN 0.5 mg/dL (0.0-1.0)
[2018-09-20 10:31] LABS: SODIUM SERUM 121 mmol/L (136-145)
[2018-09-20 10:32] LABS: ANION GAP 10 (5-15); CHLORIDE 82 mmol/L (98-107); POTASSIUM 3.6 mmol/L (3.5-5.1)
[2018-09-20 10:43] LABS: BACTERIA,URINE RARE /HPF (None Seen); RBC,URINE 0-3 /HPF (0-3)
[2018-09-20] MEDS ORDERED: cloNIDine HCL 0.1 MG TABLET PO ONE (10:45)
[2018-09-20 10:56] LABS: CKMB RELATIVE INDEX 1.6 (0.0-2.9); CREATINE KINASE MB 3.3 ng/mL (0-3.6)
[2018-09-20] MEDS ORDERED: NEBI20TA2 PO (12:05)
[2018-09-20] MEDS ORDERED: CAT.1 PO (12:05)
[2018-09-20] MEDS ORDERED: OLME40TA12 PO (12:05)
[2018-09-20 12:39] VITALS: BP_SYST 148
[2018-09-20] MEDS: D5/0.45 NS 1,000 ML IV SCH ×2 (13:15→23:18)
[2018-09-20] MEDS ORDERED: D5W 1,000 ML IV PRN (15:08)
[2018-09-20] MEDS ORDERED: MORPHINE 4 MG/ML INJ. SYRINGE IVP PRN ×2 (15:15)
[2018-09-20] MEDS ORDERED: INSULIN REGULAR, HUMAN 100 UNITS/ML, 10 ML VIAL (novoLIN R) SUBCUT PRN (15:15)
[2018-09-20] MEDS ORDERED: DEXTROSE 50% JECT 50 ML DISP.SYRIN IVP PRN (15:15)
[2018-09-20] MEDS ORDERED: GLUCOSE 15 GM GEL (in 37.5 GM TUBE) PO PRN (15:15)
[2018-09-20 16:02] VITALS: BP_SYST 138
[2018-09-20 20:55] VITALS: BP_SYST 168
[2018-09-20] MEDS ORDERED: ENALAPRILAT DIHYDRATE 1.25 MG/ML VIAL IVP SCH (21:45)
[2018-09-20] MEDS ORDERED: ENALAPRILAT DIHYDRATE 1.25 MG/ML VIAL ONE (23:09)
[2018-09-21] VITALS (7 sets, daily range): BP systolic 135–180
[2018-09-21] MEDS: ONDANSETRON HCL 4 MG/2 ML VIAL IVP PRN ×2 (03:06→11:34)
[2018-09-21 06:59] LABS: BASOPHILS % (AUTO) 0.1 % (0.0-2.0); EOSINOPHILS # (AUTO) 0.1 K/uL (0.0-0.4); HEMATOCRIT 36.3 % (36-48); HEMOGLOBIN 12.4 g/dL (12.0-16.0); LYMPHOCYTES # (AUTO) 1.3 K/uL (1.0-5.5); LYMPHOCYTES % (AUTO) 11.4 % (20.5-51.5); MEAN CORPUSCULAR HEMOGLOBIN 30 pg (27-31); MEAN CORPUSCULAR HGB CONC 34 % (32-36); MEAN CORPUSCULAR VOLUME 88 fL (79.0-98.0); MONOCYTES # (AUTO) 0.6 K/uL (0.0-1.0); MONOCYTES % (AUTO) 5.3 % (1.7-9.3); NEUTROPHILS % (AUTO) 82.2 % (40.0-70.0); PLATELET COUNT (AUTO) 281 K/uL (130-430); RED BLOOD CELL COUNT(AUTO) 4.11 MIL/uL (4.2-6.2); RED CELL DISTRIBUTION WIDTH 13.5 % (9.0-15.0)
[2018-09-21 07:35] LABS: ALANINE AMINOTRANSFERASE 34 U/L (12-78); ALBUMIN 3.3 g/dL (3.4-4.8); AMYLASE 59 U/L (0-100); ANION GAP 7 (5-15); ASPARTATE AMINOTRANSFERASE 21 U/L (10-37); CALCIUM 8.6 mg/dL (8.4-11.0); CHLORIDE 86 mmol/L (98-107); CREATININE 0.71 mg/dL (0.55-1.30); GLUCOSE 147 mg/dL (70-99); LIPASE 116 U/L (73-393); POTASSIUM 3.2 mmol/L (3.5-5.1); SODIUM SERUM 121 mmol/L (136-145); TOTAL BILIRUBIN 0.6 mg/dL (0.0-1.0); UREA NITROGEN, BLOOD 11 mg/dL (8-21)
[2018-09-21] MEDS ORDERED: NEBIVOLOL HCL 5 MG TABLET PO SCH (09:15)
[2018-09-21] MEDS ORDERED: OLMESARTAN MEDOXOMIL 20 MG TABLET PO SCH (09:15)
[2018-09-21] MEDS ORDERED: LOSARTAN POTASSIUM 50 MG TABLET (COZAAR) PO ONE (09:30)
[2018-09-21] MEDS ORDERED: LEVOTHYROXINE SODIUM 0.112 MG TABLET PO ONE (09:30)
[2018-09-21] MEDS ORDERED: metFORMIN HCL 500 MG TABLET PO ONE (09:30)
[2018-09-21] MEDS ORDERED: METOPROLOL TARTRATE 50 MG TABLET PO ONE (09:30)
[2018-09-21] MEDS ORDERED: cloNIDine HCL 0.1 MG TABLET PO ONE (09:30)
[2018-09-21] MEDS ORDERED: TRIAMTERENE/HYDROCHLOROTHIAZID 1 CAP CAPSULE (DYAZIDE37.5/25) PO ONE (09:30)
[2018-09-21] MEDS: D5/0.45 NS 1,000 ML IV SCH (12:30)
[2018-09-21] MEDS ORDERED: POTASSIUM CHLORIDE 20 MEQ TAB.PRT.SR PO ONE (17:00)
[2018-09-21] MEDS: NACL 0.9% 1,000 ML IV SCH (17:05)
[2018-09-21] MEDS: metFORMIN HCL 500 MG TABLET PO SCH (17:05)
[2018-09-21] MEDS: amLODIPine BESYLATE 5 MG TABLET PO SCH (17:45)
[2018-09-21] MEDS: PSYLLIUM HUSK 1 PKT PACKET PO SCH (20:43)
[2018-09-21] MEDS: cloNIDine HCL 0.1 MG TABLET PO SCH (20:43)
[2018-09-21] MEDS: ATORVASTATIN 20 MG TABLET PO SCH (20:44)
[2018-09-21] MEDS: DOCUSATE SODIUM 100 MG CAPSULE PO SCH (20:44)
[2018-09-21] MEDS: METOPROLOL TARTRATE 50 MG TABLET PO SCH (20:44)
[2018-09-21] MEDS: NYSTATIN 15 GM TOPICAL POWDER TP SCH (20:45)
[2018-09-22 00:27] VITALS: BP_SYST 132
[2018-09-22] MEDS: NACL 0.9% 1,000 ML IV SCH ×2 (02:36→11:33)
[2018-09-22] MEDS: LEVOTHYROXINE SODIUM 0.112 MG TABLET PO SCH (06:00)
[2018-09-22 07:55] LABS: BASOPHILS % (AUTO) 0.2 % (0.0-2.0); EOSINOPHILS # (AUTO) 0.2 K/uL (0.0-0.4); EOSINOPHILS % (AUTO) 2.1 % (0.0-4.0); HEMATOCRIT 33.9 % (36-48); HEMOGLOBIN 11.6 g/dL (12.0-16.0); LYMPHOCYTES # (AUTO) 1.6 K/uL (1.0-5.5); LYMPHOCYTES % (AUTO) 21.1 % (20.5-51.5); MEAN CORPUSCULAR HEMOGLOBIN 30 pg (27-31); MEAN CORPUSCULAR HGB CONC 34 % (32-36); MEAN CORPUSCULAR VOLUME 89 fL (79.0-98.0); MONOCYTES # (AUTO) 0.6 K/uL (0.0-1.0); MONOCYTES % (AUTO) 7.7 % (1.7-9.3); NEUTROPHILS # (AUTO) 5.2 K/uL (1.8-7.7); NEUTROPHILS % (AUTO) 68.9 % (40.0-70.0); PLATELET COUNT (AUTO) 269 K/uL (130-430); RED BLOOD CELL COUNT(AUTO) 3.82 MIL/uL (4.2-6.2); RED CELL DISTRIBUTION WIDTH 13.4 % (9.0-15.0); WHITE BLOOD COUNT (AUTO) 7.6 K/uL (4.8-10.8)
[2018-09-22 07:58] LABS: ALANINE AMINOTRANSFERASE 28 U/L (12-78); ALBUMIN 3.3 g/dL (3.4-4.8); ANION GAP 9 (5-15); ASPARTATE AMINOTRANSFERASE 20 U/L (10-37); C-REACTIVE PROTEIN QUANT 0.9 mg/dL (0-0.5); CALCIUM 8.7 mg/dL (8.4-11.0); CHLORIDE 90 mmol/L (98-107); CREATININE 0.61 mg/dL (0.55-1.30); GLUCOSE 115 mg/dL (70-99); PHOSPHORUS 2.5 mg/dL (2.7-4.5); POTASSIUM 3.5 mmol/L (3.5-5.1); SODIUM SERUM 127 mmol/L (136-145); TOTAL BILIRUBIN 0.7 mg/dL (0.0-1.0); UREA NITROGEN, BLOOD 8 mg/dL (8-21)
[2018-09-22 08:00] VITALS: BP_SYST 167
[2018-09-22] MEDS: amLODIPine BESYLATE 5 MG TABLET PO SCH (08:55)
[2018-09-22] MEDS: PSYLLIUM HUSK 1 PKT PACKET PO SCH ×2 (08:59→21:00)
[2018-09-22] MEDS: NYSTATIN 15 GM TOPICAL POWDER TP SCH ×2 (08:59→22:40)
[2018-09-22] MEDS ORDERED: TRIAMTERENE/HYDROCHLOROTHIAZID 1 CAP CAPSULE (DYAZIDE37.5/25) PO SCH (09:00)
[2018-09-22] MEDS: METOPROLOL TARTRATE 50 MG TABLET PO SCH ×2 (09:00→22:39)
[2018-09-22] MEDS: DOCUSATE SODIUM 100 MG CAPSULE PO SCH ×2 (09:01→21:00)
[2018-09-22] MEDS: cloNIDine HCL 0.1 MG TABLET PO SCH ×2 (09:01→22:39)
[2018-09-22] MEDS: metFORMIN HCL 500 MG TABLET PO SCH ×2 (09:01→17:24)
[2018-09-22] MEDS: LOSARTAN POTASSIUM 50 MG TABLET (COZAAR) PO SCH (09:01)
[2018-09-22 09:26] LABS: ERYTHROCYTE SEDIMENTATION RATE 16 MM/HR (0-20)
[2018-09-22] MEDS ORDERED: NA PHOS 15 MM in NS 250 ML IV ONE (09:45)
[2018-09-22 10:30] VITALS: BP_SYST 148
[2018-09-22 11:27] VITALS: BP_SYST 156
[2018-09-22] MEDS: cloNIDine HCL 0.1 MG TABLET PO PRN (13:45)
[2018-09-22] MEDS: cefTRIAXone 1 GM in D5W 50 ML IV SCH (14:23)
[2018-09-22 15:28] VITALS: BP_SYST 148
[2018-09-22 20:00] VITALS: BP_SYST 158
[2018-09-22] MEDS: ATORVASTATIN 20 MG TABLET PO SCH (22:38)
[2018-09-22] MEDS: ACETAMINOPHEN 325 MG TABLET PO PRN (22:46)
[2018-09-23 00:06] VITALS: BP_SYST 160
[2018-09-23] MEDS: LEVOTHYROXINE SODIUM 0.112 MG TABLET PO SCH (06:33)
[2018-09-23 06:58] LABS: BASOPHILS % (AUTO) 0.4 % (0.0-2.0); EOSINOPHILS # (AUTO) 0.2 K/uL (0.0-0.4); EOSINOPHILS % (AUTO) 2.3 % (0.0-4.0); HEMATOCRIT 31.5 % (36-48); HEMOGLOBIN 10.5 g/dL (12.0-16.0); LYMPHOCYTES # (AUTO) 1.7 K/uL (1.0-5.5); LYMPHOCYTES % (AUTO) 26.3 % (20.5-51.5); MEAN CORPUSCULAR HEMOGLOBIN 30 pg (27-31); MEAN CORPUSCULAR HGB CONC 34 % (32-36); MEAN CORPUSCULAR VOLUME 89 fL (79.0-98.0); MONOCYTES # (AUTO) 0.5 K/uL (0.0-1.0); NEUTROPHILS # (AUTO) 4.1 K/uL (1.8-7.7); PLATELET COUNT (AUTO) 242 K/uL (130-430); RED BLOOD CELL COUNT(AUTO) 3.53 MIL/uL (4.2-6.2); RED CELL DISTRIBUTION WIDTH 13.5 % (9.0-15.0); WHITE BLOOD COUNT (AUTO) 6.5 K/uL (4.8-10.8)
[2018-09-23 07:12] LABS: ANION GAP 6 (5-15); CALCIUM 8.1 mg/dL (8.4-11.0); CHLORIDE 98 mmol/L (98-107); CREATININE 0.77 mg/dL (0.55-1.30); GLUCOSE 93 mg/dL (70-99); POTASSIUM 3.1 mmol/L (3.5-5.1); SODIUM SERUM 131 mmol/L (136-145); UREA NITROGEN, BLOOD 15 mg/dL (8-21)
[2018-09-23 08:00] VITALS: BP_SYST 159
[2018-09-23] MEDS: PSYLLIUM HUSK 1 PKT PACKET PO SCH ×3 (08:24→21:12)
[2018-09-23] MEDS: LOSARTAN POTASSIUM 50 MG TABLET (COZAAR) PO SCH (08:25)
[2018-09-23] MEDS: cloNIDine HCL 0.1 MG TABLET PO SCH ×2 (08:25→21:13)
[2018-09-23] MEDS: DOCUSATE SODIUM 100 MG CAPSULE PO SCH ×2 (08:25→21:12)
[2018-09-23] MEDS: METOPROLOL TARTRATE 50 MG TABLET PO SCH ×2 (08:26→21:13)
[2018-09-23] MEDS: metFORMIN HCL 500 MG TABLET PO SCH ×2 (08:26→16:58)
[2018-09-23] MEDS: amLODIPine BESYLATE 5 MG TABLET PO SCH (08:27)
[2018-09-23] MEDS: NYSTATIN 15 GM TOPICAL POWDER TP SCH ×2 (08:29→21:12)
[2018-09-23] MEDS: NACL 0.9% 1,000 ML IV SCH ×2 (08:31→23:49)
[2018-09-23 11:24] VITALS: BP_SYST 153
[2018-09-23] MEDS: ACETAMINOPHEN 325 MG TABLET PO PRN (13:30)
[2018-09-23] MEDS: cefTRIAXone 1 GM in D5W 50 ML IV SCH (14:12)
[2018-09-23] MEDS: cloNIDine HCL 0.1 MG TABLET PO PRN (14:20)
[2018-09-23 15:26] VITALS: BP_SYST 156
[2018-09-23] MEDS ORDERED: POTASSIUM CHLORIDE 20 MEQ TAB.PRT.SR PO ONE (15:45)
[2018-09-23] MEDS: ONDANSETRON HCL 4 MG/2 ML VIAL IVP PRN (18:05)
[2018-09-23 21:09] VITALS: BP_SYST 150
[2018-09-23] MEDS: ATORVASTATIN 20 MG TABLET PO SCH (21:12)
[2018-09-24 01:26] VITALS: BP_SYST 154
[2018-09-24] MEDS: LEVOTHYROXINE SODIUM 0.112 MG TABLET PO SCH (06:00)
[2018-09-24 06:36] LABS: BASOPHILS % (AUTO) 0.4 % (0.0-2.0); EOSINOPHILS # (AUTO) 0.1 K/uL (0.0-0.4); EOSINOPHILS % (AUTO) 1.8 % (0.0-4.0); HEMOGLOBIN 11.3 g/dL (12.0-16.0); LYMPHOCYTES # (AUTO) 1.7 K/uL (1.0-5.5); MEAN CORPUSCULAR HEMOGLOBIN 31 pg (27-31); MEAN CORPUSCULAR HGB CONC 34 % (32-36); MEAN CORPUSCULAR VOLUME 89 fL (79.0-98.0); MONOCYTES # (AUTO) 0.5 K/uL (0.0-1.0); MONOCYTES % (AUTO) 7.2 % (1.7-9.3); NEUTROPHILS # (AUTO) 4.4 K/uL (1.8-7.7); NEUTROPHILS % (AUTO) 65.6 % (40.0-70.0); PLATELET COUNT (AUTO) 250 K/uL (130-430); RED CELL DISTRIBUTION WIDTH 13.6 % (9.0-15.0); WHITE BLOOD COUNT (AUTO) 6.7 K/uL (4.8-10.8)
[2018-09-24 07:02] LABS: ANION GAP 10 (5-15); C-REACTIVE PROTEIN QUANT 0.5 mg/dL (0-0.5); CHLORIDE 94 mmol/L (98-107); CREATININE 0.68 mg/dL (0.55-1.30); GLUCOSE 99 mg/dL (70-99); POTASSIUM 3.6 mmol/L (3.5-5.1); SODIUM SERUM 130 mmol/L (136-145); UREA NITROGEN, BLOOD 13 mg/dL (8-21)
[2018-09-24 08:10] LABS: ERYTHROCYTE SEDIMENTATION RATE 15 MM/HR (0-20)
[2018-09-24] MEDS: LOSARTAN POTASSIUM 50 MG TABLET (COZAAR) PO SCH (08:14)
[2018-09-24] MEDS: amLODIPine BESYLATE 5 MG TABLET PO SCH (08:15)
[2018-09-24] MEDS: cloNIDine HCL 0.1 MG TABLET PO SCH (08:16)
[2018-09-24] MEDS: metFORMIN HCL 500 MG TABLET PO SCH (08:16)
[2018-09-24] MEDS: METOPROLOL TARTRATE 50 MG TABLET PO SCH (08:17)
[2018-09-24] MEDS: PSYLLIUM HUSK 1 PKT PACKET PO SCH (08:17)
[2018-09-24] MEDS: DOCUSATE SODIUM 100 MG CAPSULE PO SCH (08:17)
[2018-09-24] MEDS: NYSTATIN 15 GM TOPICAL POWDER TP SCH (08:17)
[2018-09-24 08:19] VITALS: BP_SYST 162
[2018-09-24] MEDS: ACETAMINOPHEN 325 MG TABLET PO PRN (11:15)
[2018-09-24 12:20] VITALS: BP_SYST 142
[2018-09-24] MEDS ORDERED: PSYL3.4P5 PO (13:24)
[2018-09-24] MEDS ORDERED: DOCU-144 PO (13:24)
[2018-09-24] MEDS ORDERED: METO-442 PO (13:24)
[2018-09-24] MEDS ORDERED: LOSA50TA3 PO (13:24)
[2018-09-24] MEDS ORDERED: AMLO5TAB4 PO (13:24)
[2018-09-24] MEDS: cefTRIAXone 1 GM in D5W 50 ML IV SCH (14:25)
[2018-09-24 15:04] VITALS: BP_SYST 143
== END 2018-09-24 15:55 | disposition home or self-care (01) | DRG 305 ==
LOC: SED 07:40 → STU 11:38 → SMU 12:10 → STU 12:48 → SMU 15:40
PROVIDERS: ADMIT Preventive Medicine Preventive Medicine/Occupational Environmental Medicine; ATTEND Preventive Medicine Preventive Medicine/Occupational Environmental Medicine
DX: I16.1 Hypertensive emergency (principal); N39.0 Urinary tract infection, site not specified; E87.1 Hypo-osmolality and hyponatremia; E88.09 Other disorders of plasma-protein metabolism, not elsewhere classified; E78.5 Hyperlipidemia, unspecified; G47.00 Insomnia, unspecified; D64.9 Anemia, unspecified; E03.9 Hypothyroidism, unspecified; E11.65 Type 2 diabetes mellitus with hyperglycemia; E83.39 Other disorders of phosphorus metabolism; G89.29 Other chronic pain; M54.9 Dorsalgia, unspecified; E11.42 Type 2 diabetes mellitus with diabetic polyneuropathy; I11.9 Hypertensive heart disease without heart failure; R74.8 Abnormal levels of other serum enzymes; Z96.651 Presence of right artificial knee joint; G44.209 Tension-type headache, unspecified, not intractable; E87.5 Hyperkalemia; K58.9 Irritable bowel syndrome, unspecified; R53.82 Chronic fatigue, unspecified; Z82.49 Family history of ischemic heart disease and other diseases of the circulatory system; Z90.710 Acquired absence of both cervix and uterus; Z88.6 Allergy status to analgesic agent; Z79.899 Other long term (current) drug therapy
CPT/HCPCS: 36415; 71045; 80048; 80053; 81000-TC; 82150-TC; 82550-TC; 82553-TC; 82962; 83690-TC; 83735-TC; 83935-TC; 84100-TC; 84302-TC; 84484; 85025; 85610-TC; 85651-TC; 85730-TC; 86140; 87040-TC; 87081; 87086; J0696; J1815; J2270; J2405; J2550; J7030; J7050; J7060

== ENCOUNTER 2018-10-17 22:52 | Emergency (ER) | payer OTHER, MEDICAID ==
[~2018-10-17] VITALS: Ht 157.5 cm; Wt 82.6 kg
[~2018-10-17 22:52] MED LIST changes: +AMLO5TAB4 PO; +CAT.1 PO; +DOCU-144 PO; -ELA25 PO; +METO-442 PO; -NOR10 PO; +PSYL3.4P5 PO; -TRIA1CAP53 PO
[2018-10-17 22:58] VITALS: BP_SYST 191
[2018-10-17] MEDS ORDERED: ENALAPRILAT DIHYDRATE 1.25 MG/ML VIAL IVP ONE (23:45)
[2018-10-17] MEDS ORDERED: hydrALAZINE HCL 20 MG/ML VIAL IVP ONE (23:45)
[2018-10-18] MEDS ORDERED: ONDANSETRON 4 MG ODT TAB PO ONE (01:00)
[2018-10-18 02:13] VITALS: BP_SYST 115
== END 2018-10-18 02:13 | disposition home or self-care (01) ==
LOC: SED 22:52
DX: I10 Essential (primary) hypertension (principal); E11.9 Type 2 diabetes mellitus without complications; E03.9 Hypothyroidism, unspecified; Z90.710 Acquired absence of both cervix and uterus; Z88.6 Allergy status to analgesic agent; Z79.899 Other long term (current) drug therapy
CPT/HCPCS: 96374; 99283; J0360; Q0162

== ENCOUNTER 2021-11-06 13:03 | Inpatient (IN) | payer OTHER, MEDICAID ==
[~2021-11-06] VITALS: Ht 157.5 cm; Wt 72.6 kg
[2021-11-06 13:22] VITALS: BP_SYST 193
[2021-11-06] MEDS ORDERED: LORazepam 2 MG/ML VIAL IVP PRN (15:30)
[2021-11-06] MEDS ORDERED: GOLYTELY / COLYTE SOLUTION 4 LITERS PO ONE (16:00)
[2021-11-06 16:43] LABS: BASOPHILS % (AUTO) 0.7 % (0.0-2.0); EOSINOPHILS # (AUTO) 0.1 K/uL (0.0-0.4); EOSINOPHILS % (AUTO) 1.7 % (0.0-4.0); HEMATOCRIT 34.1 % (36-48); HEMOGLOBIN 11.4 g/dL (12.0-16.0); LYMPHOCYTES # (AUTO) 1.2 K/uL (1.0-5.5); LYMPHOCYTES % (AUTO) 26.4 % (20.5-51.5); MEAN CORPUSCULAR HEMOGLOBIN 29 pg (27-31); MEAN CORPUSCULAR HGB CONC 34 % (32-36); MEAN CORPUSCULAR VOLUME 88 fL (79.0-98.0); MONOCYTES # (AUTO) 0.4 K/uL (0.0-1.0); MONOCYTES % (AUTO) 8.3 % (1.7-9.3); NEUTROPHILS # (AUTO) 2.8 K/uL (1.8-7.7); NEUTROPHILS % (AUTO) 62.9 % (40.0-70.0); PLATELET COUNT (AUTO) 177 K/uL (130-430); RED BLOOD CELL COUNT(AUTO) 3.88 MIL/uL (4.2-6.2); RED CELL DISTRIBUTION WIDTH 15.4 % (9.0-15.0); WHITE BLOOD COUNT (AUTO) 4.5 K/uL (4.8-10.8)
[2021-11-06 16:48] LABS: ANION GAP 5 (5-15); CALCIUM 7.8 mg/dL (8.4-11.0); CHLORIDE 96 mmol/L (98-107); CREATININE 0.54 mg/dL (0.55-1.30); GLUCOSE 99 mg/dL (70-99); SODIUM SERUM 128 mmol/L (136-145); UREA NITROGEN, BLOOD 17 mg/dL (8-21)
[2021-11-06 16:54] LABS: ALANINE AMINOTRANSFERASE 20 U/L (12-78); ALBUMIN 3.3 g/dL (3.4-4.8); ASPARTATE AMINOTRANSFERASE 18 U/L (10-37); LIPASE 82 U/L (73-393); TOTAL BILIRUBIN 0.7 mg/dL (0.0-1.0)
[2021-11-06] MEDS ORDERED: iohexoL 240 mgI/mL, 150 ML INFUS..BTL IV ONE (18:02)
[2021-11-06 18:24] LABS: BILIRUBIN,URINE NEGATIVE (NEGATIVE); BLOOD, URINE NEGATIVE (NEGATIVE); CLARITY/URINE CLEAR (CLEAR); COLOR,URINE YELLOW (YELLOW); GLUCOSE,URINE NEGATIVE (NEGATIVE); KETONES,URINE NEGATIVE (NEGATIVE); NITRITE, URINE NEGATIVE (NEGATIVE); PH,URINE 6.5 (5.0-8.0); PROTEIN URINE NEGATIVE (NEGATIVE); UROBILINOGEN,URINE 0.2 (0.2-1.0)
[2021-11-06 18:33] LABS: LEUKOCYTE ESTERASE ,URINE TRACE (NEGATIVE)
[2021-11-06 18:34] LABS: BACTERIA,URINE FEW /HPF (None Seen); RBC,URINE NONE SEEN /HPF (0-3)
[2021-11-06 18:35] LABS: MUCUS,URINE None Seen /LPF (None Seen)
[2021-11-06] MEDS ORDERED: METOPROLOL TARTRATE 50 MG TABLET ONE (20:56)
[2021-11-06] MEDS ORDERED: LOSARTAN POTASSIUM 50 MG TABLET (COZAAR) ONE (20:56)
[2021-11-06] MEDS: LOSARTAN POTASSIUM 50 MG TABLET (COZAAR) PO SCH (21:00)
[2021-11-06] MEDS: cloNIDine HCL 0.1 MG TABLET PO SCH (21:00)
[2021-11-06] MEDS: amLODIPine BESYLATE 5 MG TABLET PO SCH (21:00)
[2021-11-06] MEDS: MORPHINE 2 MG/ML INJ. SYRINGE IVP PRN (21:00)
[2021-11-06] MEDS ORDERED: INSULIN REGULAR, HUMAN 100 UNITS/ML, 10 ML VIAL (humuLIN R) SUBCUT PRN (21:00)
[2021-11-06] MEDS: METOPROLOL TARTRATE 50 MG TABLET PO SCH (21:00)
[2021-11-06] MEDS ORDERED: GOLYTELY / COLYTE SOLUTION 4 LITERS ONE (21:39)
[2021-11-06 23:00] VITALS: BP_SYST 113
[2021-11-07] VITALS (16 sets, daily range): BP systolic 118–266
[2021-11-07] MEDS: MORPHINE 2 MG/ML INJ. SYRINGE IVP PRN ×2 (00:24→14:19)
[2021-11-07] MEDS: D5/0.45 NS 1,000 ML IV SCH (04:00)
[2021-11-07] MEDS ORDERED: NA PHOS,M-B/NA PHOS,DI-BA 66.6 ML (FLEET ENEMA PEDS) RC ONE (06:30)
[2021-11-07] MEDS: LOSARTAN POTASSIUM 50 MG TABLET (COZAAR) PO SCH (09:00)
[2021-11-07] MEDS ORDERED: LEVOTHYROXINE SODIUM 0.112 MG TABLET PO SCH (09:00)
[2021-11-07] MEDS: cloNIDine HCL 0.1 MG TABLET PO SCH ×2 (09:00→20:52)
[2021-11-07] MEDS: METOPROLOL TARTRATE 50 MG TABLET PO SCH ×2 (09:00→20:52)
[2021-11-07] MEDS: amLODIPine BESYLATE 5 MG TABLET PO SCH (09:00)
[2021-11-07] MEDS ORDERED: PROPOFOL 200MG/ 20ML VIAL (DIPRIVAN) IV ONE (13:58)
[2021-11-07] MEDS ORDERED: NS IRRIG SOLN 1000 ML IR ONE (13:58)
[2021-11-07] MEDS ORDERED: DEXAMETHASONE SOD PHOSPHATE 4 MG/ML VIAL ONE (13:58)
[2021-11-07] MEDS ORDERED: BUPIVACAINE /PF 0.25% 30 ML VIAL INJ ONE (13:58)
[2021-11-07] MEDS ORDERED: ONDANSETRON HCL 4 MG/2 ML VIAL ONE (13:58)
[2021-11-07] MEDS ORDERED: NS 1000 ML IV.SOLN IV ONE (13:58)
[2021-11-07] MEDS ORDERED: SUCCINYLCHOLINE CHLORIDE 20 MG/ML(QUELICIN) ONE (13:58)
[2021-11-07] MEDS ORDERED: ROCURONIUM BROMIDE 10 MG/ML (ZEMURON) ONE (13:58)
[2021-11-07] MEDS ORDERED: SEVOFLURANE 15 MIN GAS INH ONE (13:58)
[2021-11-07 15:28] LABS: ANION GAP 9 (5-15); CALCIUM 7.6 mg/dL (8.4-11.0); CHLORIDE 93 mmol/L (98-107); CREATININE 0.48 mg/dL (0.55-1.30); GLUCOSE 108 mg/dL (70-99); SODIUM SERUM 130 mmol/L (136-145); UREA NITROGEN, BLOOD 10 mg/dL (8-21)
[2021-11-07 16:12] LABS: POTASSIUM 2.8 mmol/L (3.5-5.1)
[2021-11-07 16:28] LABS: INR 0.9 (0.8-1.2); PROTHROMBIN TIME 9.9 SECS (9.5-12.5)
[2021-11-07] MEDS ORDERED: POTASSIUM CHLORIDE 20 mEq in 100 mL (PREMIX) 100 ML x 2 doses IV SCH (16:30)
[2021-11-07] MEDS ORDERED: BUPIVACAINE LIPOSOME/PF 266 MG/20 ML VIAL INFIL ONE (17:21)
[2021-11-07] MEDS ORDERED: KETOROLAC TROMETHAMINE 30 MG VIAL IVP PRN (17:45)
[2021-11-07] MEDS ORDERED: ONDANSETRON HCL 4 MG/2 ML VIAL IVP PRN (17:45)
[2021-11-07] MEDS ORDERED: MORPHINE 4 MG INJ. 4 MG/ML VIAL IVP PRN (17:45)
[2021-11-07] MEDS ORDERED: NALOXONE HCL 0.4 MG/ML AMP (NARCAN) IVP PRN ×2 (17:45→20:15)
[2021-11-07] MEDS ORDERED: HYDROmorphone 1 MG/ML INJ. CARTRIDGE IVP PRN (17:45)
[2021-11-07] MEDS ORDERED: MIDAZOLAM HCL 5 MG/5 ML VIAL IVP PRN (17:45)
[2021-11-07] MEDS ORDERED: MORPHINE SULFATE IN 0.9 % NACL 100 ML IV ONE (20:11)
[2021-11-07] MEDS ORDERED: LABETALOL HCL 20 MG/4 ML CARTRIDGE IVP PRN (20:15)
[2021-11-07] MEDS ORDERED: MORPHINE SULFATE IN 0.9 % NACL 100 ML IV PRN (20:15)
[2021-11-07] MEDS: cefOXitin SODIUM 1 GM in D5W 50 ML IV SCH (20:51)
[2021-11-07] MEDS ORDERED: PROPOFOL DRIP 100 ML IV ONE (22:09)
[2021-11-07] MEDS: PROPOFOL DRIP 100 ML IV PRN (22:12)
[2021-11-08] VITALS (28 sets, daily range): BP systolic 116–199
[2021-11-08] MEDS: cefOXitin SODIUM 1 GM in D5W 50 ML IV SCH ×4 (03:02→19:30)
[2021-11-08] MEDS: PROPOFOL DRIP 100 ML IV PRN ×2 (03:04→07:44)
[2021-11-08 06:01] LABS: BASOPHILS % (AUTO) 0.3 % (0.0-2.0); HEMOGLOBIN 12.3 g/dL (12.0-16.0); LYMPHOCYTES # (AUTO) 0.6 K/uL (1.0-5.5); LYMPHOCYTES % (AUTO) 6.2 % (20.5-51.5); MEAN CORPUSCULAR HEMOGLOBIN 30 pg (27-31); MEAN CORPUSCULAR HGB CONC 34 % (32-36); MEAN CORPUSCULAR VOLUME 87 fL (79.0-98.0); MONOCYTES # (AUTO) 0.6 K/uL (0.0-1.0); MONOCYTES % (AUTO) 5.4 % (1.7-9.3); NEUTROPHILS # (AUTO) 9.1 K/uL (1.8-7.7); NEUTROPHILS % (AUTO) 88.1 % (40.0-70.0); PLATELET COUNT (AUTO) 197 K/uL (130-430); RED BLOOD CELL COUNT(AUTO) 4.12 MIL/uL (4.2-6.2); WHITE BLOOD COUNT (AUTO) 10.3 K/uL (4.8-10.8)
[2021-11-08 06:31] LABS: ALANINE AMINOTRANSFERASE 17 U/L (12-78); ALBUMIN 2.7 g/dL (3.4-4.8); ANION GAP 12 (5-15); ASPARTATE AMINOTRANSFERASE 16 U/L (10-37); CALCIUM 7.4 mg/dL (8.4-11.0); CHLORIDE 96 mmol/L (98-107); CREATININE 0.78 mg/dL (0.55-1.30); GLUCOSE 153 mg/dL (70-99); SODIUM SERUM 130 mmol/L (136-145); TOTAL BILIRUBIN 0.8 mg/dL (0.0-1.0); UREA NITROGEN, BLOOD 14 mg/dL (8-21)
[2021-11-08] MEDS: D5/0.45 NS 1,000 ML IV SCH ×2 (06:41→16:33)
[2021-11-08] MEDS: cloNIDine HCL 0.1 MG TABLET PO SCH ×2 (08:29→21:00)
[2021-11-08] MEDS: METOPROLOL TARTRATE 50 MG TABLET PO SCH ×2 (08:29→21:00)
[2021-11-08] MEDS ORDERED: KCL 20 mEq in 100 mL (PREMIX) 100 ML IV ONE (08:30)
[2021-11-08] MEDS ORDERED: MAGNESIUM SULFATE 1 GM in NS 100 ML IV ONE (08:30)
[2021-11-08] MEDS: amLODIPine BESYLATE 5 MG TABLET PO SCH (08:30)
[2021-11-08] MEDS: LOSARTAN POTASSIUM 50 MG TABLET (COZAAR) PO SCH (08:30)
[2021-11-08] MEDS: hydrALAZINE HCL 20 MG/ML VIAL IVP PRN (15:08)
[2021-11-08] MEDS: ONDANSETRON HCL 4 MG/2 ML VIAL IVP PRN (19:06)
[2021-11-08] MEDS: MORPHINE 2 MG/ML INJ. SYRINGE IVP PRN (23:18)
[2021-11-09] VITALS (17 sets, daily range): BP systolic 115–166
[2021-11-09] MEDS: cefOXitin SODIUM 1 GM in D5W 50 ML IV SCH ×4 (01:30→20:00)
[2021-11-09 05:50] LABS: BASOPHILS % (AUTO) 0.3 % (0.0-2.0); EOSINOPHILS % (AUTO) 0.4 % (0.0-4.0); HEMATOCRIT 35.6 % (36-48); LYMPHOCYTES # (AUTO) 1.3 K/uL (1.0-5.5); LYMPHOCYTES % (AUTO) 15.6 % (20.5-51.5); MEAN CORPUSCULAR HEMOGLOBIN 29 pg (27-31); MEAN CORPUSCULAR HGB CONC 34 % (32-36); MEAN CORPUSCULAR VOLUME 87 fL (79.0-98.0); MONOCYTES # (AUTO) 0.6 K/uL (0.0-1.0); MONOCYTES % (AUTO) 7.5 % (1.7-9.3); NEUTROPHILS # (AUTO) 6.2 K/uL (1.8-7.7); NEUTROPHILS % (AUTO) 76.2 % (40.0-70.0); PLATELET COUNT (AUTO) 195 K/uL (130-430); RED BLOOD CELL COUNT(AUTO) 4.08 MIL/uL (4.2-6.2); RED CELL DISTRIBUTION WIDTH 15.4 % (9.0-15.0); WHITE BLOOD COUNT (AUTO) 8.1 K/uL (4.8-10.8)
[2021-11-09] MEDS: D5/0.45 NS 1,000 ML IV SCH ×2 (06:00→11:43)
[2021-11-09 06:15] LABS: ANION GAP 9 (5-15); CALCIUM 7.4 mg/dL (8.4-11.0); CHLORIDE 94 mmol/L (98-107); CREATININE 0.97 mg/dL (0.55-1.30); GLUCOSE 114 mg/dL (70-99); POTASSIUM 3.7 mmol/L (3.5-5.1); SODIUM SERUM 125 mmol/L (136-145); UREA NITROGEN, BLOOD 20 mg/dL (8-21)
[2021-11-09] MEDS: hydrALAZINE HCL 20 MG/ML VIAL IVP PRN (06:15)
[2021-11-09] MEDS: amLODIPine BESYLATE 5 MG TABLET PO SCH (09:04)
[2021-11-09] MEDS: METOPROLOL TARTRATE 50 MG TABLET PO SCH ×2 (09:05→20:38)
[2021-11-09] MEDS: LEVOTHYROXINE SODIUM 0.112 MG TABLET PO SCH (09:05)
[2021-11-09] MEDS: LOSARTAN POTASSIUM 50 MG TABLET (COZAAR) PO SCH (09:05)
[2021-11-09] MEDS ORDERED: MORPHINE 2 MG/ML INJ. SYRINGE IVP PRN (13:45)
[2021-11-09] MEDS ORDERED: MAGNESIUM OXIDE 400 MG TABLET PO ONE (14:00)
[2021-11-09] MEDS: cloNIDine HCL 0.1 MG TABLET PO SCH (20:37)
[2021-11-10] VITALS: BP_SYST 153
[2021-11-10] MEDS: traMADol HCL HCL 50 MG TABLET (ULTRAM) PO PRN ×2 (01:36→14:11)
[2021-11-10] MEDS: cefOXitin SODIUM 1 GM in D5W 50 ML IV SCH ×4 (01:37→21:33)
[2021-11-10] MEDS: LEVOTHYROXINE SODIUM 0.112 MG TABLET PO SCH (06:55)
[2021-11-10 07:50] LABS: BASOPHILS % (AUTO) 0.4 % (0.0-2.0); EOSINOPHILS # (AUTO) 0.1 K/uL (0.0-0.4); EOSINOPHILS % (AUTO) 1.7 % (0.0-4.0); HEMATOCRIT 31.7 % (36-48); HEMOGLOBIN 10.7 g/dL (12.0-16.0); LYMPHOCYTES # (AUTO) 1.3 K/uL (1.0-5.5); LYMPHOCYTES % (AUTO) 21.3 % (20.5-51.5); MEAN CORPUSCULAR HEMOGLOBIN 30 pg (27-31); MEAN CORPUSCULAR HGB CONC 34 % (32-36); MEAN CORPUSCULAR VOLUME 89 fL (79.0-98.0); MONOCYTES # (AUTO) 0.6 K/uL (0.0-1.0); MONOCYTES % (AUTO) 10.7 % (1.7-9.3); NEUTROPHILS # (AUTO) 3.9 K/uL (1.8-7.7); NEUTROPHILS % (AUTO) 65.9 % (40.0-70.0); PLATELET COUNT (AUTO) 181 K/uL (130-430); RED BLOOD CELL COUNT(AUTO) 3.58 MIL/uL (4.2-6.2); RED CELL DISTRIBUTION WIDTH 15.4 % (9.0-15.0)
[2021-11-10 08:00] VITALS: BP_SYST 166
[2021-11-10 08:47] LABS: ALANINE AMINOTRANSFERASE 16 U/L (12-78); ALBUMIN 2.3 g/dL (3.4-4.8); ANION GAP 4 (5-15); ASPARTATE AMINOTRANSFERASE 13 U/L (10-37); C-REACTIVE PROTEIN QUANT 9.9 mg/dL (0-0.5); CALCIUM 7.5 mg/dL (8.4-11.0); CHLORIDE 98 mmol/L (98-107); CREATININE 0.62 mg/dL (0.55-1.30); GLUCOSE 118 mg/dL (70-99); PHOSPHORUS 2.1 mg/dL (2.7-4.5); POTASSIUM 3.6 mmol/L (3.5-5.1); SODIUM SERUM 127 mmol/L (136-145); TOTAL BILIRUBIN 0.8 mg/dL (0.0-1.0); UREA NITROGEN, BLOOD 13 mg/dL (8-21)
[2021-11-10] MEDS: D5/0.45 NS 1,000 ML IV SCH (09:12)
[2021-11-10] MEDS: amLODIPine BESYLATE 5 MG TABLET PO SCH (09:33)
[2021-11-10] MEDS: METOPROLOL TARTRATE 50 MG TABLET PO SCH ×2 (09:33→21:32)
[2021-11-10] MEDS: cloNIDine HCL 0.1 MG TABLET PO SCH ×2 (09:34→21:33)
[2021-11-10] MEDS: LOSARTAN POTASSIUM 50 MG TABLET (COZAAR) PO SCH (09:35)
[2021-11-10] MEDS: MAGNESIUM OXIDE 400 MG TABLET PO SCH (09:35)
[2021-11-10 12:00] VITALS: BP_SYST 159
[2021-11-10] MEDS ORDERED: K PHOS 15 MM in NS 250 ML IV ONE (15:15)
[2021-11-10 16:00] VITALS: BP_SYST 160
[2021-11-10 17:04] LABS: ANION GAP 6 (5-15); CHLORIDE 97 mmol/L (98-107); CREATININE 0.62 mg/dL (0.55-1.30); GLUCOSE 128 mg/dL (70-99); SODIUM SERUM 128 mmol/L (136-145); UREA NITROGEN, BLOOD 15 mg/dL (8-21)
[2021-11-10 17:21] LABS: CALCIUM 7.9 mg/dL (8.4-11.0)
[2021-11-10 20:10] VITALS: BP_SYST 153
[2021-11-11 00:20] VITALS: BP_SYST 141
[2021-11-11] MEDS: D5/0.45 NS 1,000 ML IV SCH ×2 (02:51→08:00)
[2021-11-11] MEDS: cefOXitin SODIUM 1 GM in D5W 50 ML IV SCH ×2 (02:52→07:30)
[2021-11-11] MEDS: LEVOTHYROXINE SODIUM 0.112 MG TABLET PO SCH (06:31)
[2021-11-11 07:03] LABS: C-REACTIVE PROTEIN QUANT 5.9 mg/dL (0-0.5); PHOSPHORUS 2.6 mg/dL (2.7-4.5)
[2021-11-11 08:00] VITALS: BP_SYST 158
[2021-11-11] MEDS: cloNIDine HCL 0.1 MG TABLET PO SCH ×2 (09:00→21:49)
[2021-11-11] MEDS: METOPROLOL TARTRATE 50 MG TABLET PO SCH ×2 (09:00→21:50)
[2021-11-11] MEDS: MAGNESIUM OXIDE 400 MG TABLET PO SCH (09:00)
[2021-11-11] MEDS: amLODIPine BESYLATE 5 MG TABLET PO SCH (09:00)
[2021-11-11] MEDS: LOSARTAN POTASSIUM 50 MG TABLET (COZAAR) PO SCH (09:00)
[2021-11-11 12:00] VITALS: BP_SYST 128
[2021-11-11 16:00] VITALS: BP_SYST 164
[2021-11-11] MEDS: traMADol HCL HCL 50 MG TABLET (ULTRAM) PO PRN (16:29)
[2021-11-11 20:00] VITALS: BP_SYST 161
[2021-11-11] MEDS ORDERED: cefOXitin SODIUM 1 GM in D5W 50 ML IV SCH (22:00)
[2021-11-12 00:26] VITALS: BP_SYST 158
[2021-11-12] MEDS: LEVOTHYROXINE SODIUM 0.112 MG TABLET PO SCH (06:24)
[2021-11-12] MEDS: metroNIDAZOLE 250 MG TABLET PO SCH ×2 (06:24→12:37)
[2021-11-12 07:42] LABS: ANION GAP 6 (5-15); CALCIUM 8.2 mg/dL (8.4-11.0); CHLORIDE 94 mmol/L (98-107); CREATININE 0.58 mg/dL (0.55-1.30); GLUCOSE 113 mg/dL (70-99); PHOSPHORUS 2.5 mg/dL (2.7-4.5); POTASSIUM 3.8 mmol/L (3.5-5.1); SODIUM SERUM 129 mmol/L (136-145); UREA NITROGEN, BLOOD 9 mg/dL (8-21)
[2021-11-12 08:00] VITALS: BP_SYST 171
[2021-11-12] MEDS: METOPROLOL TARTRATE 50 MG TABLET PO SCH (08:47)
[2021-11-12] MEDS: amLODIPine BESYLATE 5 MG TABLET PO SCH (08:48)
[2021-11-12] MEDS: cloNIDine HCL 0.1 MG TABLET PO SCH (08:48)
[2021-11-12] MEDS: LOSARTAN POTASSIUM 50 MG TABLET (COZAAR) PO SCH (08:49)
[2021-11-12] MEDS: MAGNESIUM OXIDE 400 MG TABLET PO SCH (08:49)
[2021-11-12] MEDS: hydrALAZINE HCL 20 MG/ML VIAL IVP PRN (08:58)
[2021-11-12] MEDS ORDERED: AMOXICILLIN/CLAVULANATE POTASSIUM 875 MG TABLET PO SCH (09:00)
[2021-11-12] MEDS: traMADol HCL HCL 50 MG TABLET (ULTRAM) PO PRN (10:56)
[2021-11-12 12:00] VITALS: BP_SYST 160
[2021-11-12] MEDS: ONDANSETRON HCL 4 MG/2 ML VIAL IVP PRN (12:37)
[2021-11-12 16:00] VITALS: BP_SYST 147
[2021-11-12 18:01] VITALS: BP_SYST 147
== END 2021-11-12 19:30 | disposition home or self-care (01) | DRG 329 ==
LOC: SED 13:03 → STU 15:27 → SMU 21:30 → SIC 11-07 18:36 → STU 11-09 14:35 → SMU 11-12 10:18
PROVIDERS: ADMIT Surgery; ATTEND Surgery
PROC: 0DN80ZZ Release Small Intestine, Open Approach (ICD-10-PCS; 2021-11-07)
PROC: 8E0W4CZ Robotic Assisted Procedure of Trunk Region, Percutaneous Endoscopic Approach (ICD-10-PCS; 2021-11-07)
PROC: 0DNW0ZZ Release Peritoneum, Open Approach (ICD-10-PCS; 2021-11-07)
PROC: 0DSE0ZZ Reposition Large Intestine, Open Approach (ICD-10-PCS; principal; 2021-11-07 15:01)
DX: K94.03 Colostomy malfunction (principal); J96.01 Acute respiratory failure with hypoxia; E87.1 Hypo-osmolality and hyponatremia; K94.09 Other complications of colostomy; E11.9 Type 2 diabetes mellitus without complications; K43.2 Incisional hernia without obstruction or gangrene; K43.5 Parastomal hernia without obstruction or gangrene; K66.0 Peritoneal adhesions (postprocedural) (postinfection); E03.9 Hypothyroidism, unspecified; E66.9 Obesity, unspecified; I11.9 Hypertensive heart disease without heart failure; Z20.822 Contact with and (suspected) exposure to COVID-19; Y83.8 Other surgical procedures as the cause of abnormal reaction of the patient, or of later complication, without mention of misadventure at the time of the procedure; Z79.899 Other long term (current) drug therapy; Z88.8 Allergy status to other drugs, medicaments and biological substances; Z90.710 Acquired absence of both cervix and uterus; Z90.49 Acquired absence of other specified parts of digestive tract; Z91.041 Radiographic dye allergy status; Y92.89 Other specified places as the place of occurrence of the external cause; Z68.29 Body mass index [BMI] 29.0-29.9, adult; E87.6 Hypokalemia; E83.39 Other disorders of phosphorus metabolism
CPT/HCPCS: 36415; 36430; 36600; 71045; 80048; 80053; 81000; 82803-TC; 82962; 83690; 83735; 84100; 84132; 85025; 85610-TC; 85730-TC; 86140; 86886; 86900; 86901; 87070-TC; 87081; 87205-TC; 88304; 88305; 92610-GN; 93306; 94003; 94010; 97110-GP; 97116-GP; 99291; C1727; C9290; G0378; J0330; J0360; J0694; J1100; J2270; J2405; J2704; J3475; J3480; J3490; J7030; J7050; J7060; Q9966

== ENCOUNTER 2022-08-01 19:36 | Inpatient (IN) | payer OTHER, MEDICAID ==
[~2022-08-01] VITALS: Ht 157.5 cm; Wt 71.7 kg
[~2022-08-01 19:36] MED LIST changes: -PSYL3.4P5 PO
[2022-08-01 19:48] VITALS: BP_SYST 147
[2022-08-01 21:10] LABS: BASOPHILS % (AUTO) 0.5 % (0.0-2.0); EOSINOPHILS # (AUTO) 0.5 K/uL (0.0-0.4); EOSINOPHILS % (AUTO) 6.1 % (0.0-4.0); HEMATOCRIT 35.5 % (36-48); HEMOGLOBIN 11.7 g/dL (12.0-16.0); LYMPHOCYTES # (AUTO) 0.9 K/uL (1.0-5.5); LYMPHOCYTES % (AUTO) 11.8 % (20.5-51.5); MEAN CORPUSCULAR HEMOGLOBIN 29 pg (27-31); MEAN CORPUSCULAR HGB CONC 33 % (32-36); MEAN CORPUSCULAR VOLUME 88 fL (79.0-98.0); MONOCYTES # (AUTO) 0.5 K/uL (0.0-1.0); MONOCYTES % (AUTO) 7.2 % (1.7-9.3); NEUTROPHILS # (AUTO) 5.6 K/uL (1.8-7.7); NEUTROPHILS % (AUTO) 74.4 % (40.0-70.0); PLATELET COUNT (AUTO) 252 K/uL (130-430); RED BLOOD CELL COUNT(AUTO) 4.06 MIL/uL (4.2-6.2); RED CELL DISTRIBUTION WIDTH 17.1 % (9.0-15.0); WHITE BLOOD COUNT (AUTO) 7.5 K/uL (4.8-10.8)
[2022-08-01 21:22] LABS: ANION GAP 4 (5-15); CALCIUM 8.9 mg/dL (8.4-11.0); CHLORIDE 96 mmol/L (98-107); CREATININE 0.74 mg/dL (0.55-1.30); GLUCOSE 158 mg/dL (70-99); PROTHROMBIN TIME 9.9 SECS (9.5-12.5); UREA NITROGEN, BLOOD 17 mg/dL (8-21)
[2022-08-01 21:29] LABS: ALANINE AMINOTRANSFERASE 49 U/L (12-78); ALBUMIN 3.7 g/dL (3.4-4.8); ASPARTATE AMINOTRANSFERASE 24 U/L (10-37); TOTAL BILIRUBIN 0.6 mg/dL (0.0-1.0)
[2022-08-01] MEDS ORDERED: LEVO100T9 PO (22:33)
[2022-08-01] MEDS ORDERED: HYDR-4039 PO (22:33)
[2022-08-01] MEDS ORDERED: METF-518 PO (22:33)
[2022-08-01] MEDS ORDERED: INSULIN REGULAR, HUMAN 100 UNITS/ML, 3 ML VIAL (humuLIN R) SUBCUT PRN (23:00)
[2022-08-01] MEDS: CARVEDILOL 6.25 MG TABLET (COREG) PO SCH (23:21)
[2022-08-02 00:41] VITALS: BP_SYST 115
[2022-08-02] MEDS: LEVOTHYROXINE SODIUM 0.1 MG TABLET PO SCH (06:35)
[2022-08-02 07:45] VITALS: BP_SYST 152
[2022-08-02] MEDS: CARVEDILOL 6.25 MG TABLET (COREG) PO SCH (09:00)
[2022-08-02] MEDS: hydrALAZINE HCL 25 MG TABLET PO SCH ×3 (09:20→20:54)
[2022-08-02] MEDS ORDERED: DOCUSATE SODIUM 100 MG CAPSULE PO PRN (10:00)
[2022-08-02] MEDS ORDERED: DOCUSATE SODIUM 100 MG CAPSULE PO ONE (10:15)
[2022-08-02] MEDS: ACETAMINOPHEN 325 MG TABLET PO PRN (10:26)
[2022-08-02 12:00] VITALS: BP_SYST 143
[2022-08-02 16:00] VITALS: BP_SYST 133
[2022-08-02 20:15] VITALS: BP_SYST 155
[2022-08-02] MEDS: DOCUSATE SODIUM 100 MG CAPSULE PO SCH (20:53)
[2022-08-02] MEDS: ENOXAPARIN SODIUM 40 MG/0.4 ML SYRINGE SUBCUT SCH (20:54)
[2022-08-03] MEDS: ACETAMINOPHEN 325 MG TABLET PO PRN (00:09)
[2022-08-03 02:36] VITALS: BP_SYST 137
[2022-08-03 05:37] LABS: BASOPHILS % (AUTO) 0.3 % (0.0-2.0); EOSINOPHILS # (AUTO) 0.6 K/uL (0.0-0.4); EOSINOPHILS % (AUTO) 10.3 % (0.0-4.0); HEMATOCRIT 32.5 % (36-48); HEMOGLOBIN 10.7 g/dL (12.0-16.0); LYMPHOCYTES # (AUTO) 1.8 K/uL (1.0-5.5); LYMPHOCYTES % (AUTO) 31.6 % (20.5-51.5); MEAN CORPUSCULAR HEMOGLOBIN 29 pg (27-31); MEAN CORPUSCULAR HGB CONC 33 % (32-36); MEAN CORPUSCULAR VOLUME 87 fL (79.0-98.0); MONOCYTES # (AUTO) 0.5 K/uL (0.0-1.0); MONOCYTES % (AUTO) 9.4 % (1.7-9.3); NEUTROPHILS # (AUTO) 2.8 K/uL (1.8-7.7); NEUTROPHILS % (AUTO) 48.4 % (40.0-70.0); PLATELET COUNT (AUTO) 268 K/uL (130-430); RED BLOOD CELL COUNT(AUTO) 3.74 MIL/uL (4.2-6.2); RED CELL DISTRIBUTION WIDTH 17.2 % (9.0-15.0); WHITE BLOOD COUNT (AUTO) 5.8 K/uL (4.8-10.8)
[2022-08-03 06:01] LABS: ANION GAP 9 (5-15); CALCIUM 8.4 mg/dL (8.4-11.0); CHLORIDE 98 mmol/L (98-107); CREATININE 0.54 mg/dL (0.55-1.30); GLUCOSE 83 mg/dL (70-99); UREA NITROGEN, BLOOD 16 mg/dL (8-21)
[2022-08-03] MEDS: LEVOTHYROXINE SODIUM 0.1 MG TABLET PO SCH (06:10)
[2022-08-03 08:00] VITALS: BP_SYST 182
[2022-08-03] MEDS: DOCUSATE SODIUM 100 MG CAPSULE PO SCH ×2 (09:06→21:01)
[2022-08-03] MEDS: GLIMEPIRIDE 2 MG TABLET PO SCH ×2 (09:07→09:12)
[2022-08-03] MEDS: hydrALAZINE HCL 25 MG TABLET PO SCH ×3 (09:09→21:01)
[2022-08-03 13:21] VITALS: BP_SYST 173
[2022-08-03 17:12] VITALS: BP_SYST 165
[2022-08-03] MEDS ORDERED: POTASSIUM CHLORIDE 20 MEQ/PKT PACKET PO ONE (17:30)
[2022-08-03] MEDS ORDERED: ONDANSETRON HCL 4 MG/2 ML VIAL IVP PRN (17:45)
[2022-08-03] MEDS ORDERED: SODIUM PHOSPHATE,MONO-DIBASIC 133 ML ENEMA RC ONE (17:45)
[2022-08-03] MEDS ORDERED: MILK OF MAGNESIA 30 ML UDC PO ONE (17:45)
[2022-08-03] MEDS ORDERED: MILK OF MAGNESIA 30 ML UDC PO PRN (17:45)
[2022-08-03 20:00] VITALS: BP_SYST 161
[2022-08-03] MEDS ORDERED: MELATONIN 5 MG TABLET PO PRN (20:15)
[2022-08-03] MEDS ORDERED: MELATONIN 5 MG TABLET PO ONE (20:32)
[2022-08-03] MEDS: SENNOSIDES 8.6 MG TABLET PO SCH (21:02)
[2022-08-03] MEDS: LOSARTAN POTASSIUM 50 MG TABLET (COZAAR) PO SCH (21:02)
[2022-08-03] MEDS: ENOXAPARIN SODIUM 40 MG/0.4 ML SYRINGE SUBCUT SCH (21:02)
[2022-08-03] MEDS: MEGESTROL ACETATE 400 MG/10 ML UDC PO SCH (21:02)
[2022-08-04 04:00] VITALS: BP_SYST 149
[2022-08-04] MEDS: LEVOTHYROXINE SODIUM 0.1 MG TABLET PO SCH (07:00)
[2022-08-04 07:38] LABS: BASOPHILS % (AUTO) 0.4 % (0.0-2.0); EOSINOPHILS # (AUTO) 0.4 K/uL (0.0-0.4); HEMATOCRIT 34.4 % (36-48); HEMOGLOBIN 11.4 g/dL (12.0-16.0); LYMPHOCYTES # (AUTO) 1.8 K/uL (1.0-5.5); LYMPHOCYTES % (AUTO) 30.6 % (20.5-51.5); MEAN CORPUSCULAR HEMOGLOBIN 29 pg (27-31); MEAN CORPUSCULAR HGB CONC 33 % (32-36); MEAN CORPUSCULAR VOLUME 87 fL (79.0-98.0); MONOCYTES # (AUTO) 0.6 K/uL (0.0-1.0); MONOCYTES % (AUTO) 10.1 % (1.7-9.3); NEUTROPHILS # (AUTO) 3.1 K/uL (1.8-7.7); NEUTROPHILS % (AUTO) 51.9 % (40.0-70.0); PLATELET COUNT (AUTO) 270 K/uL (130-430); RED BLOOD CELL COUNT(AUTO) 3.97 MIL/uL (4.2-6.2); RED CELL DISTRIBUTION WIDTH 16.9 % (9.0-15.0)
[2022-08-04 07:42] LABS: ANION GAP 6 (5-15); CALCIUM 8.6 mg/dL (8.4-11.0); CHLORIDE 98 mmol/L (98-107); CREATININE 0.57 mg/dL (0.55-1.30); GLUCOSE 90 mg/dL (70-99); UREA NITROGEN, BLOOD 18 mg/dL (8-21)
[2022-08-04 08:00] VITALS: BP_SYST 169
[2022-08-04] MEDS: MEGESTROL ACETATE 400 MG/10 ML UDC PO SCH ×2 (08:20→20:50)
[2022-08-04] MEDS: DOCUSATE SODIUM 100 MG CAPSULE PO SCH ×2 (08:20→20:52)
[2022-08-04] MEDS: hydrALAZINE HCL 25 MG TABLET PO SCH ×3 (08:21→20:53)
[2022-08-04] MEDS: LOSARTAN POTASSIUM 50 MG TABLET (COZAAR) PO SCH ×2 (08:21→20:52)
[2022-08-04] MEDS ORDERED: BISACODYL 10 MG/SUPPOSITORY RC ONE ×2 (09:00→15:00)
[2022-08-04] MEDS ORDERED: LACTULOSE 20 GM/30 ML UDC PO ONE (09:00)
[2022-08-04] MEDS: ACETAMINOPHEN 325 MG TABLET PO PRN (10:35)
[2022-08-04] MEDS: POLYETHYLENE GLYCOL 3350, 17 GM/ POWD.PACK PO SCH (10:35)
[2022-08-04 12:30] VITALS: BP_SYST 130
[2022-08-04 16:00] VITALS: BP_SYST 119
[2022-08-04] MEDS ORDERED: SODIUM PHOSPHATE,MONO-DIBASIC 133 ML ENEMA RC ONE (16:15)
[2022-08-04] MEDS ORDERED: SODIUM PHOSPHATE,MONO-DIBASIC 133 ML ENEMA RC PRN (17:30)
[2022-08-04 20:00] VITALS: BP_SYST 161
[2022-08-04] MEDS: ENOXAPARIN SODIUM 40 MG/0.4 ML SYRINGE SUBCUT SCH (20:51)
[2022-08-04] MEDS: SENNOSIDES 8.6 MG TABLET PO SCH (20:51)
[2022-08-05] MEDS: LEVOTHYROXINE SODIUM 0.1 MG TABLET PO SCH (07:00)
[2022-08-05 08:00] VITALS: BP_SYST 160
[2022-08-05] MEDS: POLYETHYLENE GLYCOL 3350, 17 GM/ POWD.PACK PO SCH (09:00)
[2022-08-05] MEDS: GLIMEPIRIDE 2 MG TABLET PO SCH (09:31)
[2022-08-05] MEDS: hydrALAZINE HCL 25 MG TABLET PO SCH ×3 (09:31→21:25)
[2022-08-05] MEDS: DOCUSATE SODIUM 100 MG CAPSULE PO SCH ×2 (09:31→21:25)
[2022-08-05] MEDS: MEGESTROL ACETATE 400 MG/10 ML UDC PO SCH ×2 (09:31→21:25)
[2022-08-05] MEDS: LOSARTAN POTASSIUM 50 MG TABLET (COZAAR) PO SCH ×2 (09:32→21:24)
[2022-08-05 11:16] VITALS: BP_SYST 139
[2022-08-05 16:15] VITALS: BP_SYST 130
[2022-08-05 20:00] VITALS: BP_SYST 150
[2022-08-05] MEDS: SENNOSIDES 8.6 MG TABLET PO SCH (21:25)
[2022-08-05] MEDS: ENOXAPARIN SODIUM 40 MG/0.4 ML SYRINGE SUBCUT SCH (21:26)
[2022-08-06] MEDS: LEVOTHYROXINE SODIUM 0.1 MG TABLET PO SCH (06:22)
[2022-08-06 06:46] LABS: BASOPHILS % (AUTO) 0.7 % (0.0-2.0); EOSINOPHILS # (AUTO) 0.2 K/uL (0.0-0.4); EOSINOPHILS % (AUTO) 3.4 % (0.0-4.0); HEMATOCRIT 31.6 % (36-48); HEMOGLOBIN 10.4 g/dL (12.0-16.0); LYMPHOCYTES # (AUTO) 1.7 K/uL (1.0-5.5); LYMPHOCYTES % (AUTO) 29.5 % (20.5-51.5); MEAN CORPUSCULAR HEMOGLOBIN 29 pg (27-31); MEAN CORPUSCULAR HGB CONC 33 % (32-36); MEAN CORPUSCULAR VOLUME 87 fL (79.0-98.0); MONOCYTES # (AUTO) 0.4 K/uL (0.0-1.0); MONOCYTES % (AUTO) 7.6 % (1.7-9.3); NEUTROPHILS # (AUTO) 3.4 K/uL (1.8-7.7); NEUTROPHILS % (AUTO) 58.8 % (40.0-70.0); PLATELET COUNT (AUTO) 272 K/uL (130-430); RED BLOOD CELL COUNT(AUTO) 3.63 MIL/uL (4.2-6.2); RED CELL DISTRIBUTION WIDTH 17.7 % (9.0-15.0); WHITE BLOOD COUNT (AUTO) 5.8 K/uL (4.8-10.8)
[2022-08-06] MEDS ORDERED: GLIMEPIRIDE 2 MG TABLET PO SCH (07:00)
[2022-08-06 07:54] LABS: ALANINE AMINOTRANSFERASE 25 U/L (12-78); ALBUMIN 2.8 g/dL (3.4-4.8); ANION GAP 10 (5-15); ASPARTATE AMINOTRANSFERASE 16 U/L (10-37); CALCIUM 8.3 mg/dL (8.4-11.0); CHLORIDE 100 mmol/L (98-107); CREATININE 0.67 mg/dL (0.55-1.30); FREE T4 (FREE THYROXINE) 1.4 ng/dL (0.6-1.6); GLUCOSE 77 mg/dL (70-99); THYROID STIMULATING HORMONE 1.02 uIu/mL (0.34-4.82); TOTAL BILIRUBIN 0.4 mg/dL (0.0-1.0); UREA NITROGEN, BLOOD 20 mg/dL (8-21)
[2022-08-06 08:06] VITALS: BP_SYST 151
[2022-08-06] MEDS: DOCUSATE SODIUM 100 MG CAPSULE PO SCH (08:30)
[2022-08-06] MEDS: hydrALAZINE HCL 25 MG TABLET PO SCH ×2 (08:30→16:11)
[2022-08-06] MEDS: MEGESTROL ACETATE 400 MG/10 ML UDC PO SCH (08:30)
[2022-08-06] MEDS: LOSARTAN POTASSIUM 50 MG TABLET (COZAAR) PO SCH (08:54)
[2022-08-06] MEDS: POLYETHYLENE GLYCOL 3350, 17 GM/ POWD.PACK PO SCH (08:58)
[2022-08-06] MEDS: ACETAMINOPHEN 325 MG TABLET PO PRN (10:49)
[2022-08-06 12:36] VITALS: BP_SYST 149
[2022-08-06 16:00] VITALS: BP_SYST 134
[2022-08-06 16:22] VITALS: BP_SYST 136
[2022-08-06] MEDS ORDERED: MEGE400O4 PO (16:34)
[2022-08-06] MEDS ORDERED: SENN8.6T19 PO (16:36)
[2022-08-06] MEDS ORDERED: DOCU-144 PO (16:36)
[2022-08-06] MEDS ORDERED: LOSA50TA3 PO (16:37)
[2022-08-06] MEDS ORDERED: LEVO100T PO (16:40)
[2022-08-06 16:45] VITALS: BP_SYST 96
== END 2022-08-06 18:35 | disposition home or self-care (01) | DRG 74 ==
LOC: SED 19:36 → STU 22:49 → SMU 08-04 19:31
PROVIDERS: ADMIT Family Medicine; ATTEND Family Medicine
DX: G90.8 Other disorders of autonomic nervous system (principal); E87.1 Hypo-osmolality and hyponatremia; D64.9 Anemia, unspecified; E11.9 Type 2 diabetes mellitus without complications; I10 Essential (primary) hypertension; E03.9 Hypothyroidism, unspecified; E66.9 Obesity, unspecified; E87.6 Hypokalemia; K59.09 Other constipation; Z20.822 Contact with and (suspected) exposure to COVID-19; M17.0 Bilateral primary osteoarthritis of knee; Z88.8 Allergy status to other drugs, medicaments and biological substances; Z88.1 Allergy status to other antibiotic agents; Z91.041 Radiographic dye allergy status; Z79.899 Other long term (current) drug therapy; Z90.710 Acquired absence of both cervix and uterus; Z68.28 Body mass index [BMI] 28.0-28.9, adult
CPT/HCPCS: 36415; 70450-TC; 71045; 76376; 80048; 80053; 82550; 83735; 84439; 84443; 84484; 85025; 85610-TC; 85730-TC; 87081; 93005; 97110-GP; 97116-GP; 97163-GP; 97530-GP; 99285; G0378; J1650

== ENCOUNTER 2022-08-31 02:01 | Emergency (ER) | payer OTHER, MEDICAID ==
[~2022-08-31] VITALS: Ht 157.5 cm; Wt 72.6 kg
[~2022-08-31 02:01] MED LIST changes: -AMLO5TAB4 PO; -CAT.1 PO; +HYDR-4039 PO; +LEVO100T PO; +LEVO100T9 PO; -LEVO112T5 PO; -LIP20 PO; +MEGE400O4 PO; +METF-518 PO; -METF1000 PO; -METO-442 PO; -PREG100C PO; +SENN8.6T19 PO
[2022-08-31 02:15] VITALS: BP_SYST 193
--- NOTE | 2022-08-31 02:49 | NUR ---
Placed in room 7 . Placed on secured entrance monitor, blood pressure machine and pulse oximeter. To gown for exam. Side rails up.
--- NOTE | 2022-08-31 03:09 | NUR ---
PT BLOOD AND URINE COLLECTED AND WALKED TO LAB
[2022-08-31 03:44] LABS: ANION GAP 10 (5-15); CALCIUM 8.7 mg/dL (8.4-11.0); CHLORIDE 95 mmol/L (98-107); CREATININE 0.77 mg/dL (0.55-1.30); GLUCOSE 95 mg/dL (70-99); UREA NITROGEN, BLOOD 21 mg/dL (8-21)
[2022-08-31 03:48] LABS: ALANINE AMINOTRANSFERASE 33 U/L (12-78); ALBUMIN 3.6 g/dL (3.4-4.8); ASPARTATE AMINOTRANSFERASE 19 U/L (10-37); BASOPHILS % (AUTO) 0.6 % (0.0-2.0); EOSINOPHILS # (AUTO) 0.4 K/uL (0.0-0.4); EOSINOPHILS % (AUTO) 5.3 % (0.0-4.0); HEMATOCRIT 34.2 % (36-48); HEMOGLOBIN 11.3 g/dL (12.0-16.0); LIPASE 131 U/L (73-393); LYMPHOCYTES # (AUTO) 2.1 K/uL (1.0-5.5); LYMPHOCYTES % (AUTO) 28.9 % (20.5-51.5); MEAN CORPUSCULAR HEMOGLOBIN 29 pg (27-31); MEAN CORPUSCULAR HGB CONC 33 % (32-36); MEAN CORPUSCULAR VOLUME 88 fL (79.0-98.0); MONOCYTES # (AUTO) 0.8 K/uL (0.0-1.0); MONOCYTES % (AUTO) 10.7 % (1.7-9.3); NEUTROPHILS # (AUTO) 3.9 K/uL (1.8-7.7); NEUTROPHILS % (AUTO) 54.5 % (40.0-70.0); PLATELET COUNT (AUTO) 246 K/uL (130-430); RED BLOOD CELL COUNT(AUTO) 3.88 MIL/uL (4.2-6.2); RED CELL DISTRIBUTION WIDTH 17.3 % (9.0-15.0); TOTAL BILIRUBIN 0.5 mg/dL (0.0-1.0); WHITE BLOOD COUNT (AUTO) 7.1 K/uL (4.8-10.8)
[2022-08-31 03:54] LABS: BILIRUBIN,URINE NEGATIVE (NEGATIVE); BLOOD, URINE NEGATIVE (NEGATIVE); CLARITY/URINE CLEAR (CLEAR); COLOR,URINE YELLOW (YELLOW); GLUCOSE,URINE NEGATIVE (NEGATIVE); KETONES,URINE NEGATIVE (NEGATIVE); LEUKOCYTE ESTERASE ,URINE NEGATIVE (NEGATIVE); NITRITE, URINE NEGATIVE (NEGATIVE); PH,URINE 7.5 (5.0-8.0); PROTEIN URINE NEGATIVE (NEGATIVE); UROBILINOGEN,URINE 0.2 (0.2-1.0)
[2022-08-31] MEDS ORDERED: POLY17PO4 PO (04:48)
[2022-08-31] MEDS ORDERED: GABA-529 PO (04:48)
[2022-08-31] MEDS ORDERED: GABAPENTIN 100 MG CAPSULE PO ONE (05:15)
[2022-08-31 05:21] VITALS: BP_SYST 161
--- NOTE | 2022-08-31 06:05 | NUR ---
PT IS MEDICALLY CLEARED FOR DISCHARGED, ALL D/C AND RX INSTRUCTIONS GIVEN TO PATIENT AND SON, VERBALIZED ALL UNDERSTANDING. DENIES ANY OTHER COMPLAINTS. PT WHEEL CHAIRED OUT OF ER
== END 2022-08-31 06:05 | disposition home or self-care (01) ==
LOC: SED 02:01
DX: K43.9 Ventral hernia without obstruction or gangrene (principal); R10.9 Unspecified abdominal pain; K59.00 Constipation, unspecified; E11.9 Type 2 diabetes mellitus without complications; I10 Essential (primary) hypertension; Z88.2 Allergy status to sulfonamides; Z88.6 Allergy status to analgesic agent; Z91.041 Radiographic dye allergy status; Z79.899 Other long term (current) drug therapy
CPT/HCPCS: 36415; 76376; 80053; 81003; 83690; 85025; 93005; 99284

== ENCOUNTER 2023-04-29 09:50 | Inpatient (IN) | payer OTHER, MEDICAID ==
[~2023-04-29] VITALS: Ht 157.5 cm; Wt 72.6 kg
[~2023-04-29 09:50] MED LIST changes: +GABA-529 PO; +LOSA-413 PO; -LOSA50TA3 PO; +MEGE400O17 PO; -MEGE400O4 PO; +POLY17PO4 PO
[2023-04-29 10:06] VITALS: BP_SYST 163; PULSE 87; RESP 30; TEMP 97.7; O2SAT 97
[2023-04-29] MEDS ORDERED: hydrALAZINE HCL 20 MG/ML VIAL IVP ONE ×2 (10:45→12:00)
[2023-04-29] MEDS ORDERED: ONDANSETRON HCL 4 MG/2 ML VIAL IVP ONE (10:45)
[2023-04-29] MEDS ORDERED: MORPHINE 4 MG INJ. 4 MG/ML VIAL IVP ONE (10:45)
[2023-04-29 11:01] LABS: BASOPHILS % (AUTO) 0.6 % (0.0-2.0); EOSINOPHILS # (AUTO) 0.1 K/uL (0.0-0.4); EOSINOPHILS % (AUTO) 1.1 % (0.0-4.0); HEMATOCRIT 36.2 % (36-48); HEMOGLOBIN 11.9 g/dL (12.0-16.0); LYMPHOCYTES # (AUTO) 1.1 K/uL (1.0-5.5); LYMPHOCYTES % (AUTO) 20.6 % (20.5-51.5); MEAN CORPUSCULAR HEMOGLOBIN 30 pg (27-31); MEAN CORPUSCULAR HGB CONC 33 % (32-36); MEAN CORPUSCULAR VOLUME 91 fL (79.0-98.0); MONOCYTES # (AUTO) 0.4 K/uL (0.0-1.0); MONOCYTES % (AUTO) 6.7 % (1.7-9.3); NEUTROPHILS # (AUTO) 3.8 K/uL (1.8-7.7); PLATELET COUNT (AUTO) 270 K/uL (130-430); RED BLOOD CELL COUNT(AUTO) 3.98 MIL/uL (4.2-6.2); WHITE BLOOD COUNT (AUTO) 5.4 K/uL (4.8-10.8)
[2023-04-29 11:15] LABS: ANION GAP 10 (5-15); CARBON DIOXIDE 26 mmol/L (23-29); CHLORIDE 90 mmol/L (98-107); CREATININE 0.56 mg/dL (0.55-1.30); GLUCOSE 130 mg/dL (74-106); POTASSIUM 3.2 mmol/L (3.5-5.1); SODIUM SERUM 126 mmol/L (136-145); UREA NITROGEN, BLOOD 9 mg/dL (8-21)
[2023-04-29 11:28] LABS: CREATINE KINASE, TOTAL 50 U/L (26-192); FREE T4 (FREE THYROXINE) 1.5 ng/dL (0.6-1.6); PHOSPHORUS 3.8 mg/dL (2.7-4.5); THYROID STIMULATING HORMONE 2.64 uIu/mL (0.34-4.82)
[2023-04-29 11:31] LABS: INFLUENZA TYPE A Negative (NEGATIVE); INFLUENZA TYPE B NEGATIVE (NEGATIVE)
[2023-04-29] MEDS ORDERED: ACETAMINOPHEN 500 MG TABLET PO ONE (12:00)
[2023-04-29] MEDS ORDERED: POTASSIUM CHLORIDE 20 MEQ/PKT PACKET PO ONE ×2 (12:15→18:00)
[2023-04-29] MEDS ORDERED: NACL 0.9% 1,000 ML IV ONE (12:15)
[2023-04-29] MEDS ORDERED: SIME180C70 PO (13:35)
[2023-04-29] MEDS ORDERED: FAMO20TA8 PO (13:35)
[2023-04-29] MEDS ORDERED: CLON0.1T PO (13:35)
[2023-04-29] MEDS ORDERED: FURO20TA4 PO (13:35)
[2023-04-29] MEDS ORDERED: LEVO100T9 PO (13:37)
[2023-04-29] MEDS ORDERED: HYDR-4039 PO (13:37)
[2023-04-29 14:07] LABS: ACETONE, SERUM NEGATIVE (NEGATIVE)
[2023-04-29] MEDS ORDERED: MORPHINE 2 MG/ML INJ. SYRINGE IVP PRN ×2 (14:15)
[2023-04-29] MEDS ORDERED: ONDANSETRON HCL 4 MG/2 ML VIAL IVP PRN (14:15)
[2023-04-29] MEDS ORDERED: DOCUSATE SODIUM 100 MG CAPSULE PO PRN (14:15)
[2023-04-29] MEDS ORDERED: POTASSIUM CHLORIDE 20 MEQ TABLET.ER PO PRN (14:15)
[2023-04-29] MEDS ORDERED: LORazepam 2 MG/ML VIAL IVP PRN (14:15)
[2023-04-29] MEDS ORDERED: DEXTROSE 50% JECT 50 ML DISP.SYRIN IVP PRN (14:15)
[2023-04-29] MEDS ORDERED: MUPIROCIN 2% TOPICAL OINTMENT 22 GM NS PRN (14:15)
[2023-04-29] MEDS ORDERED: INSULIN LISPRO SLIDING SCALE 100 UNITS/ML, 3 ML VIAL (humaLOG) SUBCUT PRN (14:15)
[2023-04-29] MEDS ORDERED: NALOXONE HCL 0.4 MG/ML AMP (NARCAN) IVP PRN ×2 (14:15)
[2023-04-29] MEDS ORDERED: MAGNESIUM SULFATE 50 ML IV PRN (14:15)
[2023-04-29] MEDS: hydrALAZINE HCL 25 MG TABLET PO SCH ×2 (15:00→23:45)
[2023-04-29] MEDS ORDERED: ACETAMINOPHEN 500 MG TABLET PO PRN ×3 (15:00→15:15)
[2023-04-29] MEDS ORDERED: HYDROCHLOROTHIAZIDE 25 MG TABLET (HCTZ) PO ONE (15:00)
[2023-04-29 16:11] LABS: BILIRUBIN,URINE NEGATIVE (NEGATIVE); BLOOD, URINE NEGATIVE (NEGATIVE); CLARITY/URINE CLEAR (CLEAR); COLOR,URINE YELLOW (YELLOW); GLUCOSE,URINE NEGATIVE (NEGATIVE); KETONES,URINE NEGATIVE (NEGATIVE); LEUKOCYTE ESTERASE ,URINE NEGATIVE (NEGATIVE); NITRITE, URINE POSITIVE (NEGATIVE); PROTEIN URINE NEGATIVE (NEGATIVE); UROBILINOGEN,URINE 0.2 (0.2-1.0)
[2023-04-29] MEDS ORDERED: HYDROCHLOROTHIAZIDE 25 MG TABLET (HCTZ) ONE (16:23)
[2023-04-29] MEDS: NACL 0.9% 1,000 ML IV SCH (17:00)
[2023-04-29 17:34] LABS: BACTERIA,URINE MANY /HPF (None Seen)
[2023-04-29 18:13] VITALS: BP_SYST 164; PULSE 73; RESP 19; TEMP 97.3; O2SAT 96
[2023-04-29 19:30] VITALS: BP_SYST 135; PULSE 84; RESP 18; TEMP 96.5
[2023-04-29 20:00] VITALS: BP_SYST 135; PULSE 82; RESP 16; TEMP 96.5; O2SAT 98
[2023-04-29] MEDS: ZOLPIDEM TARTRATE 5 MG TABLET PO PRN (23:44)
[2023-04-29] MEDS: DOCUSATE SODIUM 100 MG CAPSULE PO SCH (23:46)
[2023-04-29] MEDS: HEPARIN SODIUM,PORCINE 5,000 UNITS/ML VIAL SUBCUT SCH (23:54)
[2023-04-30] VITALS (7 sets, daily range): BP systolic 130–191; PULSE 72–106; RESP 15–18; TEMP 96.8–98.1; O2SAT 95–98
[2023-04-30] MEDS: NACL 0.9% 1,000 ML IV SCH ×2 (05:18→19:36)
[2023-04-30 05:40] LABS: BASOPHILS % (AUTO) 0.6 % (0.0-2.0); EOSINOPHILS # (AUTO) 0.2 K/uL (0.0-0.4); EOSINOPHILS % (AUTO) 3.6 % (0.0-4.0); HEMATOCRIT 33.9 % (36-48); LYMPHOCYTES # (AUTO) 1.5 K/uL (1.0-5.5); LYMPHOCYTES % (AUTO) 33.6 % (20.5-51.5); MEAN CORPUSCULAR HEMOGLOBIN 30 pg (27-31); MEAN CORPUSCULAR HGB CONC 33 % (32-36); MEAN CORPUSCULAR VOLUME 91 fL (79.0-98.0); MONOCYTES # (AUTO) 0.4 K/uL (0.0-1.0); MONOCYTES % (AUTO) 8.2 % (1.7-9.3); NEUTROPHILS # (AUTO) 2.4 K/uL (1.8-7.7); PLATELET COUNT (AUTO) 250 K/uL (130-430); RED BLOOD CELL COUNT(AUTO) 3.73 MIL/uL (4.2-6.2); RED CELL DISTRIBUTION WIDTH 14.7 % (9.0-15.0); WHITE BLOOD COUNT (AUTO) 4.5 K/uL (4.8-10.8)
[2023-04-30 05:49] LABS: ANION GAP 8 (5-15); CALCIUM 8.9 mg/dL (8.4-11.0); CARBON DIOXIDE 28 mmol/L (23-29); CHLORIDE 93 mmol/L (98-107); CREATININE 0.49 mg/dL (0.55-1.30); GLUCOSE 75 mg/dL (74-106); POTASSIUM 3.6 mmol/L (3.5-5.1); SODIUM SERUM 129 mmol/L (136-145); UREA NITROGEN, BLOOD 7 mg/dL (8-21)
[2023-04-30] MEDS: LEVOTHYROXINE SODIUM 0.1 MG TABLET PO SCH (06:47)
[2023-04-30] MEDS: DOCUSATE SODIUM 100 MG CAPSULE PO SCH ×2 (08:33→20:24)
[2023-04-30] MEDS: hydrALAZINE HCL 25 MG TABLET PO SCH ×3 (08:33→20:23)
[2023-04-30] MEDS: HEPARIN SODIUM,PORCINE 5,000 UNITS/ML VIAL SUBCUT SCH ×2 (08:35→20:25)
[2023-04-30] MEDS ORDERED: HYDROCHLOROTHIAZIDE 25 MG TABLET (HCTZ) PO SCH (09:00)
[2023-04-30] MEDS: cefTRIAXone 1 GM in D5W 50 ML IV SCH (12:55)
[2023-04-30] MEDS ORDERED: FAMOTIDINE 20 MG TABLET PO ONE (16:00)
[2023-04-30] MEDS ORDERED: SIMETHICONE 80 MG TAB.CHEW PO ONE (16:00)
[2023-04-30] MEDS: SIMETHICONE 80 MG TAB.CHEW PO SCH (20:22)
[2023-04-30] MEDS: FAMOTIDINE 20 MG TABLET PO SCH (20:24)
[2023-04-30] MEDS: LOSARTAN POTASSIUM 50 MG TABLET (COZAAR) PO SCH (20:24)
[2023-04-30] MEDS: ZOLPIDEM TARTRATE 5 MG TABLET PO PRN (22:44)
[2023-05-01] VITALS (7 sets, daily range): BP systolic 119–175; PULSE 68–94; RESP 16–18; TEMP 97.6–98.9; O2SAT 97–99
[2023-05-01 05:54] LABS: BASOPHILS % (AUTO) 0.8 % (0.0-2.0); EOSINOPHILS # (AUTO) 0.1 K/uL (0.0-0.4); EOSINOPHILS % (AUTO) 2.2 % (0.0-4.0); HEMATOCRIT 30.1 % (36-48); HEMOGLOBIN 10.5 g/dL (12.0-16.0); LYMPHOCYTES # (AUTO) 1.5 K/uL (1.0-5.5); LYMPHOCYTES % (AUTO) 27.9 % (20.5-51.5); MEAN CORPUSCULAR HEMOGLOBIN 31 pg (27-31); MEAN CORPUSCULAR HGB CONC 35 % (32-36); MEAN CORPUSCULAR VOLUME 90 fL (79.0-98.0); MONOCYTES # (AUTO) 0.5 K/uL (0.0-1.0); MONOCYTES % (AUTO) 8.8 % (1.7-9.3); NEUTROPHILS # (AUTO) 3.3 K/uL (1.8-7.7); NEUTROPHILS % (AUTO) 60.3 % (40.0-70.0); PLATELET COUNT (AUTO) 217 K/uL (130-430); RED BLOOD CELL COUNT(AUTO) 3.34 MIL/uL (4.2-6.2); RED CELL DISTRIBUTION WIDTH 14.8 % (9.0-15.0); WHITE BLOOD COUNT (AUTO) 5.5 K/uL (4.8-10.8)
[2023-05-01] MEDS: LEVOTHYROXINE SODIUM 0.1 MG TABLET PO SCH (06:31)
[2023-05-01 06:32] LABS: ANION GAP 5 (5-15); CALCIUM 8.8 mg/dL (8.4-11.0); CARBON DIOXIDE 29 mmol/L (23-29); CHLORIDE 90 mmol/L (98-107); CREATININE 0.55 mg/dL (0.55-1.30); GLUCOSE 89 mg/dL (74-106); SODIUM SERUM 124 mmol/L (136-145); UREA NITROGEN, BLOOD 9 mg/dL (8-21)
[2023-05-01] MEDS: FAMOTIDINE 20 MG TABLET PO SCH ×2 (08:19→21:20)
[2023-05-01] MEDS: LOSARTAN POTASSIUM 50 MG TABLET (COZAAR) PO SCH ×2 (08:20→21:20)
[2023-05-01] MEDS: DOCUSATE SODIUM 100 MG CAPSULE PO SCH ×2 (08:21→21:20)
[2023-05-01] MEDS: hydrALAZINE HCL 25 MG TABLET PO SCH ×3 (08:22→21:19)
[2023-05-01] MEDS: HEPARIN SODIUM,PORCINE 5,000 UNITS/ML VIAL SUBCUT SCH ×2 (08:35→21:22)
[2023-05-01] MEDS: SIMETHICONE 80 MG TAB.CHEW PO SCH ×2 (08:52→21:20)
[2023-05-01] MEDS ORDERED: SPIRONOLACTONE 25 MG TABLET (ALDACTONE) PO SCH (09:00)
[2023-05-01] MEDS ORDERED: FUROSEMIDE 20 MG TABLET PO SCH (09:00)
[2023-05-01] MEDS: NACL 0.9% 1,000 ML IV SCH (09:54)
[2023-05-01] MEDS ORDERED: BISACODYL 10 MG/SUPPOSITORY RC PRN (10:15)
[2023-05-01] MEDS: SPIRONOLACTONE 50 MG TABLET (ALDACTONE) PO SCH (11:02)
[2023-05-01] MEDS: NIFEDIPINE 90 MG TABLET.SA (PROCARDIA XL 90 MG) PO SCH (11:03)
[2023-05-01 12:10] LABS: ANION GAP 3 (5-15); CALCIUM 8.6 mg/dL (8.4-11.0); CARBON DIOXIDE 29 mmol/L (23-29); CHLORIDE 89 mmol/L (98-107); CREATININE 0.46 mg/dL (0.55-1.30); GLUCOSE 112 mg/dL (74-106); POTASSIUM 3.1 mmol/L (3.5-5.1); SODIUM SERUM 121 mmol/L (136-145); UREA NITROGEN, BLOOD 9 mg/dL (8-21)
[2023-05-01] MEDS: cloNIDine HCL 0.1 MG TABLET PO PRN ×2 (12:42)
[2023-05-01] MEDS: cefTRIAXone 1 GM in D5W 50 ML IV SCH (13:13)
[2023-05-01] MEDS ORDERED: SODIUM CHLORIDE 3% *HI-ALERT* 250 ML IV ONE (15:30)
[2023-05-01] MEDS ORDERED: POTASSIUM CHLORIDE 20 MEQ TABLET.ER PO ONE ×2 (15:30→18:00)
[2023-05-01] MEDS: ZOLPIDEM TARTRATE 5 MG TABLET PO PRN (21:51)
[2023-05-02] VITALS: BP_SYST 125; PULSE 88; RESP 18; TEMP 98.8; O2SAT 96
[2023-05-02] MEDS: LEVOTHYROXINE SODIUM 0.1 MG TABLET PO SCH (06:08)
[2023-05-02 06:37] LABS: BASOPHILS % (AUTO) 0.4 % (0.0-2.0); EOSINOPHILS # (AUTO) 0.1 K/uL (0.0-0.4); HEMATOCRIT 30.5 % (36-48); HEMOGLOBIN 10.2 g/dL (12.0-16.0); LYMPHOCYTES # (AUTO) 1.6 K/uL (1.0-5.5); LYMPHOCYTES % (AUTO) 34.5 % (20.5-51.5); MEAN CORPUSCULAR HEMOGLOBIN 30 pg (27-31); MEAN CORPUSCULAR HGB CONC 33 % (32-36); MEAN CORPUSCULAR VOLUME 90 fL (79.0-98.0); MONOCYTES # (AUTO) 0.3 K/uL (0.0-1.0); MONOCYTES % (AUTO) 7.3 % (1.7-9.3); NEUTROPHILS # (AUTO) 2.5 K/uL (1.8-7.7); NEUTROPHILS % (AUTO) 54.8 % (40.0-70.0); PLATELET COUNT (AUTO) 224 K/uL (130-430); RED BLOOD CELL COUNT(AUTO) 3.38 MIL/uL (4.2-6.2); RED CELL DISTRIBUTION WIDTH 14.8 % (9.0-15.0); WHITE BLOOD COUNT (AUTO) 4.6 K/uL (4.8-10.8)
[2023-05-02 07:37] LABS: ANION GAP 8 (5-15); CALCIUM 8.8 mg/dL (8.4-11.0); CARBON DIOXIDE 26 mmol/L (23-29); CHLORIDE 95 mmol/L (98-107); CREATININE 0.55 mg/dL (0.55-1.30); GLUCOSE 81 mg/dL (74-106); POTASSIUM 4.4 mmol/L (3.5-5.1); SODIUM SERUM 129 mmol/L (136-145); THYROID STIMULATING HORMONE 2.48 uIu/mL (0.34-4.82); UREA NITROGEN, BLOOD 10 mg/dL (8-21)
[2023-05-02 08:03] VITALS: BP_SYST 109; PULSE 95; RESP 16; TEMP 97.6; O2SAT 96
[2023-05-02 08:30] VITALS: O2SAT 96
[2023-05-02] MEDS: hydrALAZINE HCL 25 MG TABLET PO SCH ×2 (09:00→14:36)
[2023-05-02] MEDS ORDERED: HYDR100T25 PO (09:49)
[2023-05-02] MEDS ORDERED: NIFE90TA24 PO (09:49)
[2023-05-02] MEDS ORDERED: SPIR50TA5 PO (09:49)
[2023-05-02 11:01] VITALS: BP_SYST 127; PULSE 76; RESP 16; TEMP 97.7; O2SAT 95
[2023-05-02] MEDS: SIMETHICONE 80 MG TAB.CHEW PO SCH ×2 (11:11→18:04)
[2023-05-02] MEDS: DOCUSATE SODIUM 100 MG CAPSULE PO SCH (11:11)
[2023-05-02] MEDS: FAMOTIDINE 20 MG TABLET PO SCH (11:12)
[2023-05-02] MEDS: HEPARIN SODIUM,PORCINE 5,000 UNITS/ML VIAL SUBCUT SCH (11:14)
[2023-05-02] MEDS: LOSARTAN POTASSIUM 50 MG TABLET (COZAAR) PO SCH (11:16)
[2023-05-02] MEDS: SPIRONOLACTONE 50 MG TABLET (ALDACTONE) PO SCH (11:16)
[2023-05-02 12:37] VITALS: BP_SYST 150; PULSE 78; RESP 18; TEMP 98.6; O2SAT 97
[2023-05-02] MEDS: cefTRIAXone 1 GM in D5W 50 ML IV SCH (13:00)
[2023-05-02] MEDS: NIFEDIPINE 90 MG TABLET.SA (PROCARDIA XL 90 MG) PO SCH (14:36)
[2023-05-02 15:52] VITALS: BP_SYST 154; PULSE 78; RESP 16; TEMP 98; O2SAT 95
== END 2023-05-02 18:15 | DRG 305 ==
LOC: SED 09:50 → STU 12:22
PROVIDERS: ADMIT General Practice; ATTEND General Practice
DX: I16.0 Hypertensive urgency (principal); E87.1 Hypo-osmolality and hyponatremia; N39.0 Urinary tract infection, site not specified; I10 Essential (primary) hypertension; E03.9 Hypothyroidism, unspecified; R53.81 Other malaise; E11.9 Type 2 diabetes mellitus without complications; E87.6 Hypokalemia; Z88.8 Allergy status to other drugs, medicaments and biological substances; Z88.1 Allergy status to other antibiotic agents; Z91.041 Radiographic dye allergy status; Z79.899 Other long term (current) drug therapy
CPT/HCPCS: 36415; 70450-TC; 71045; 76376; 78707; 80048; 81000; 81001; 81015; 82009; 82140; 82550; 82962; 83037; 83605; 83735; 83880; 84100; 84244; 84439; 84443; 84484; 85025; 85610-TC; 85730-TC; 87040; 87086; 93005; 93970; 96361; 96374; 96375; 99285; A9562; G0378; J0360; J0696; J1644; J2060; J2270; J2405; J3490; J7060

== ENCOUNTER 2023-05-03 15:47 | Emergency (ER) | payer OTHER, MEDICAID ==
[~2023-05-03] VITALS: Ht 162.6 cm; Wt 59.9 kg
[~2023-05-03 15:47] MED LIST changes: +CLON0.1T PO; +FAMO20TA8 PO; -HYDR-4039 PO; +HYDR100T25 PO; -MEGE400O17 PO; +NIFE90TA24 PO; +SIME180C70 PO; +SPIR50TA5 PO
[2023-05-03 16:00] VITALS: BP_SYST 136; PULSE 85; RESP 18; TEMP 99.8; O2SAT 99
[2023-05-03] MEDS ORDERED: PANTOPRAZOLE SODIUM 40 MG/VIAL (PROTONIX) IVP ONE (16:45)
[2023-05-03] MEDS ORDERED: ONDANSETRON HCL 4 MG/2 ML VIAL IVP ONE (16:45)
[2023-05-03] MEDS ORDERED: NACL 0.9% 1,000 ML IV ONE ×2 (16:45→21:45)
[2023-05-03 17:34] LABS: BASOPHILS % (AUTO) 0.5 % (0.0-2.0); EOSINOPHILS # (AUTO) 0.1 K/uL (0.0-0.4); EOSINOPHILS % (AUTO) 1.7 % (0.0-4.0); HEMATOCRIT 35.3 % (36-48); HEMOGLOBIN 11.9 g/dL (12.0-16.0); LYMPHOCYTES # (AUTO) 1.8 K/uL (1.0-5.5); LYMPHOCYTES % (AUTO) 22.1 % (20.5-51.5); MEAN CORPUSCULAR HEMOGLOBIN 31 pg (27-31); MEAN CORPUSCULAR HGB CONC 34 % (32-36); MEAN CORPUSCULAR VOLUME 91 fL (79.0-98.0); MONOCYTES # (AUTO) 0.7 K/uL (0.0-1.0); MONOCYTES % (AUTO) 8.5 % (1.7-9.3); NEUTROPHILS # (AUTO) 5.6 K/uL (1.8-7.7); NEUTROPHILS % (AUTO) 67.2 % (40.0-70.0); PLATELET COUNT (AUTO) 264 K/uL (130-430); RED BLOOD CELL COUNT(AUTO) 3.88 MIL/uL (4.2-6.2); RED CELL DISTRIBUTION WIDTH 15.1 % (9.0-15.0); WHITE BLOOD COUNT (AUTO) 8.4 K/uL (4.8-10.8)
[2023-05-03 17:42] LABS: INR 0.9 (0.8-1.2); PROTHROMBIN TIME 9.7 SECS (9.5-12.5)
[2023-05-03 17:51] LABS: ALANINE AMINOTRANSFERASE 28 U/L (12-78); ALBUMIN 3.7 g/dL (3.4-4.8); ANION GAP 9 (5-15); ASPARTATE AMINOTRANSFERASE 28 U/L (10-37); BILIRUBIN,DIRECT 0.1 mg/dL (0.0-0.3); CARBON DIOXIDE 25 mmol/L (23-29); CHLORIDE 89 mmol/L (98-107); CREATININE 0.59 mg/dL (0.55-1.30); GLUCOSE 101 mg/dL (74-106); POTASSIUM 4.5 mmol/L (3.5-5.1); SODIUM SERUM 123 mmol/L (136-145); TOTAL BILIRUBIN 0.3 mg/dL (0.0-1.0); TOTAL PROTEIN, SERUM 7.1 g/dL (6.4-8.3); UREA NITROGEN, BLOOD 12 mg/dL (8-21)
[2023-05-04] MEDS ORDERED: cefTRIAXone 1 GM in D5W 50 ML IV ONE (02:15)
[2023-05-04 02:43] LABS: ANION GAP 8 (5-15); CALCIUM 8.5 mg/dL (8.4-11.0); CARBON DIOXIDE 26 mmol/L (23-29); CHLORIDE 88 mmol/L (98-107); CREATININE 0.51 mg/dL (0.55-1.30); GLUCOSE 89 mg/dL (74-106); POTASSIUM 4.1 mmol/L (3.5-5.1); SODIUM SERUM 122 mmol/L (136-145); UREA NITROGEN, BLOOD 11 mg/dL (8-21)
[2023-05-04] MEDS ORDERED: cefTRIAXone 1 GM VIAL ONE (03:03)
[2023-05-04 03:42] LABS: BILIRUBIN,URINE NEGATIVE (NEGATIVE); BLOOD, URINE NEGATIVE (NEGATIVE); CLARITY/URINE CLEAR (CLEAR); COLOR,URINE YELLOW (YELLOW); GLUCOSE,URINE NEGATIVE (NEGATIVE); KETONES,URINE TRACE (NEGATIVE); LEUKOCYTE ESTERASE ,URINE NEGATIVE (NEGATIVE); NITRITE, URINE NEGATIVE (NEGATIVE); PROTEIN URINE NEGATIVE (NEGATIVE); UROBILINOGEN,URINE 0.2 (0.2-1.0)
[2023-05-04] MEDS ORDERED: SODI650T PO (04:27)
[2023-05-04] MEDS ORDERED: hydrALAZINE HCL 20 MG/ML VIAL IVP ONE ×2 (04:30→09:30)
[2023-05-04] MEDS ORDERED: SODIUM CHLORIDE 500 MG TABLET PO SCH (04:30)
[2023-05-04] MEDS ORDERED: SODIUM CHLORIDE 1,000 MG TABLET PO ONE (06:30)
[2023-05-04] MEDS ORDERED: cloNIDine HCL 0.1 MG TABLET PO ONE (09:30)
[2023-05-04 11:45] VITALS: BP_SYST 160; PULSE 60; RESP 17; TEMP 98.5; O2SAT 98
[2023-05-04] MEDS ORDERED: cloNIDine HCL 0.1 MG TABLET ONE (16:34)
== END 2023-05-04 11:45 | disposition home or self-care (01) ==
LOC: SED 15:47
DX: E87.1 Hypo-osmolality and hyponatremia (principal); R53.1 Weakness; R10.30 Lower abdominal pain, unspecified; E11.9 Type 2 diabetes mellitus without complications; I10 Essential (primary) hypertension; Z88.2 Allergy status to sulfonamides; Z88.6 Allergy status to analgesic agent; Z91.041 Radiographic dye allergy status; Z79.899 Other long term (current) drug therapy
CPT/HCPCS: 99285; 74176; 71045; 80076; 80048; 81001; 85025; 85610; 85730; 87040; 87086; 84484; 36415; 93005; 76376; 83605; 81003; 96365; 96375; 96376; J0696; J0360

== ENCOUNTER 2023-05-04 13:41 | Emergency (ER) | payer OTHER, MEDICAID ==
[~2023-05-04 13:41] MED LIST changes: +SODI650T PO
[2023-05-04] MEDS ORDERED: cloNIDine HCL 0.1 MG TABLET PO ONE ×2 (14:30→17:45)
[2023-05-04] MEDS ORDERED: LOSARTAN POTASSIUM 25 MG TABLET PO SCH (17:45)
[2023-05-04] MEDS ORDERED: SODIUM CHLORIDE 500 MG TABLET PO ONE (19:15)
[2023-05-04 19:30] VITALS: BP_SYST 176; RESP 18; TEMP 98.3; O2SAT 98
[2023-05-04 19:37] VITALS: BP_SYST 121; PULSE 64; RESP 18; TEMP 98.3; O2SAT 98
[2023-05-04] MEDS ORDERED: SODIUM CHLORIDE 1,000 MG TABLET ONE (19:38)
== END 2023-05-04 21:50 | disposition home or self-care (01) ==
LOC: SED 13:41
DX: I10 Essential (primary) hypertension (principal); E11.9 Type 2 diabetes mellitus without complications; Z88.2 Allergy status to sulfonamides; Z88.6 Allergy status to analgesic agent; Z91.041 Radiographic dye allergy status; Z79.899 Other long term (current) drug therapy
CPT/HCPCS: 93005; 99284